=== PATIENT | female | born 1980 | race Caucasian/White ===

== ENCOUNTER 2024-07-12 15:54 | Inpatient (IN) | payer OTHER, SELFPAY ==
[2024-07-12 16:58] LABS: #Basophils 0.09 10x3/uL (0.0-0.2); %Basophils 1.7 % (0.0-1.0); %Eosinophils 3.2 % (0.0-10.0); %Lymphocytes 15.2 % (21.0-51.0); %Monocytes 14.3 % (0.0-10.0); Hematocrit 28.3 % (36.0-47.0); Hemoglobin 8.8 g/dL (12.0-16.0); Mean Corpuscular HGB CONC 31.1 g/dL (32.0-36.0); Mean Corpuscular Hemoglobin 27.3 pg (27.0-31.0); Mean Corpuscular Volume 87.9 fL (78.0-98.0); Mean Platelet Volume 9.5 fL (7.4-10.4); Platelet Count 216 10x3/uL (130-400); RBC Distribution Width 17.3 % (11.5-14.5); Red Blood Cell (RBC) Count 3.22 mill/uL (4.20-5.40)
[2024-07-12 17:10] LABS: Lipase 15 U/L (8-78)
[2024-07-12 17:12] LABS: Acetaminophen Less than 10 mcg/mL (Less than 10); Alcohol Less than 10.0 mg/dL (Less than 10); Salicylate Less than 8.0 mg/dL (Less than 8.0)
[2024-07-12] MEDS ORDERED: Morphine 2 MG/ML VIAL ONE ×2 (17:15→18:54)
[2024-07-12 17:18] LABS: ALT (SGPT) 11 U/L (8-55); AST (SGOT) 72 U/L (5-34); Albumin 1.6 g/dL (3.5-5.0); Alkaline Phosphatase 176 U/L (40-110); Anion Gap 10 mmol/L (10-20); BUN (Urea Nitrogen) 5 mg/dL (7.0-18.7); Bilirubin, Total 0.7 mg/dL (0.2-1.2); Calc. Creatinine Clearance 0 mL/min (70-130); Calcium 7.4 mg/dL (7.8-10.44); Carbon Dioxide 26 mmol/L (22-29); Chloride 102 mmol/L (98-107); Estimated GFR 113; Globulin 5.1 g/dL (2.4-3.5); Glucose 107 mg/dL (70-105); Protein, Total 6.7 g/dL (6.0-8.3); Sodium 134 mmol/L (136-145)
[2024-07-12 17:55] LABS: Bacteria/HPF 1+ HPF (None Seen); Bilirubin Negative (Negative); Blood, Urine Negative (Negative); CAUTI Indications for Culture Pelvic or flank pain; Clarity Turbid (Clear); Glucose, Urine (Dipstick) Normal (Negative); Ketone, Urine Negative (Negative); Leukocyte 250 Leu/uL (Negative); Nitrite 1+ (Negative); Protein, Urine (Dipstick) Negative (Neg-Trace); RBC/HPF 0-3 HPF (0-3); Specific Gravity, Urine 1.002 (1.002-1.036); Urobilinogen Normal mg/dL (Less than 2); pH, Urine 7.5 (5.0-9.0)
[2024-07-12 17:56] LABS: Urine Culture Reflex Yes Yes
[2024-07-12] MEDS ORDERED: cefTRIAXone (ROCEPHIN) 2 GM VIAL ONE (19:12)
[2024-07-12] MEDS ORDERED: Sodium Chloride 0.9% 100 ML ONE (19:12)
[2024-07-12 19:42] LABS: RBC Count-Automated (BF) 1332 /cu.mm; WBC/Nucleated-Auto (BF) 222 /cu.mm
[2024-07-12] MEDS ORDERED: Albumin 25% 100 ML ONE (19:46)
[2024-07-12] MEDS ORDERED: Morphine 4 MG/ML VIAL SLOW IVP PRN ×2 (19:52→21:33)
[2024-07-12] MEDS ORDERED: Ondansetron PF 4 MG/2 ML Vial IVP PRN ×2 (20:00→21:24)
[2024-07-12] MEDS ORDERED: Ondansetron ODT 4 MG TAB SL PRN (20:00)
[2024-07-12 20:23] LABS: Body Fluid Source Ascites Body Fluid
[2024-07-12 20:24] LABS: BF Color Yellow; Clarity Hazy (Clear); Tube # EDTA
[2024-07-12 20:27] LABS: BF Segmented Neutrophils 5 %; Cell Count Non Hematic 35 %; Lymphocytes 60 %
[2024-07-13 00:35] VITALS: BMI 23.4
[2024-07-13 05:02] LABS: #Basophils 0.09 10x3/uL (0.0-0.2); %Basophils 1.4 % (0.0-1.0); %Lymphocytes 14.4 % (21.0-51.0); %Monocytes 15.4 % (0.0-10.0); %Neutrophils 65.5 % (42.0-75.0); Hematocrit 24.8 % (36.0-47.0); Hemoglobin 7.8 g/dL (12.0-16.0); Mean Corpuscular HGB CONC 31.5 g/dL (32.0-36.0); Mean Corpuscular Hemoglobin 27.2 pg (27.0-31.0); Mean Corpuscular Volume 86.4 fL (78.0-98.0); Mean Platelet Volume 8.8 fL (7.4-10.4); Platelet Count 189 10x3/uL (130-400); RBC Distribution Width 17.5 % (11.5-14.5); Red Blood Cell (RBC) Count 2.87 mill/uL (4.20-5.40)
[2024-07-13] MEDS: traMADol HCl 50 MG TAB PO PRN (05:13)
[2024-07-13 05:14] LABS: ALT (SGPT) 8 U/L (8-55); AST (SGOT) 24 U/L (5-34); Albumin 1.5 g/dL (3.5-5.0); Alkaline Phosphatase 156 U/L (40-110); Anion Gap 8 mmol/L (10-20); BUN (Urea Nitrogen) 5 mg/dL (7.0-18.7); Bilirubin, Total 0.6 mg/dL (0.2-1.2); Calc. Creatinine Clearance 114 mL/min (70-130); Carbon Dioxide 25 mmol/L (22-29); Chloride 104 mmol/L (98-107); Estimated GFR 115; Globulin 3.9 g/dL (2.4-3.5); Glucose 104 mg/dL (70-105); Potassium 2.7 mmol/L (3.5-5.1); Protein, Total 5.4 g/dL (6.0-8.3); Sodium 134 mmol/L (136-145)
[2024-07-13] MEDS: Morphine 2 MG/ML VIAL SLOW IVP SCH (06:31)
[2024-07-13] MEDS: Potassium Chloride 20 MEQ TAB PO SCH (06:36)
[2024-07-13 07:02] LABS: Magnesium 1.6 mg/dL (1.6-2.6)
[2024-07-13] MEDS ORDERED: HYDROMORPHONE 1 MG/ML SL PRN (08:24)
[2024-07-13] MEDS ORDERED: HYDROmorphone 0.5 MG/0.5 ML SYRINGE SLOW IVP PRN (08:51)
[2024-07-13] MEDS ORDERED: Non-Formulary Item 1 EACH (Lactulose 10 Gm/15ml Oral Sol 10 GM/15 ML Ml) PO SCH (09:00)
[2024-07-13] MEDS ORDERED: Furosemide 40 MG TAB PO SCH (09:00)
[2024-07-13] MEDS: Magnesium Sulfate In Water 4 GM in Premix 1 BAG IVPB SCH (10:55)
[2024-07-13] MEDS: Thiamine 100 MG TAB PO SCH (10:57)
[2024-07-13] MEDS: Folic Acid 1 MG TAB PO SCH (10:58)
[2024-07-13] MEDS: Lactulose 20 GM (30 mL) UDCUP PO SCH (10:59)
[2024-07-13] MEDS: Potassium Citrate 10 MEQ TAB PO SCH (11:00)
[2024-07-13] MEDS: Potassium Phosphate 30 MMOL in Sodium Chloride 0.9% 250 ML 250 ML IVPB SCH (12:36)
[2024-07-13] MEDS: HYDROcodone/Acetaminophen 5/325 mg Tablet PO PRN (17:21)
[2024-07-13] MEDS: Furosemide 20 MG TAB PO SCH (17:24)
[2024-07-13] MEDS: Spironolactone 25 MG TAB PO SCH (17:24)
[2024-07-13] MEDS: cefTRIAXone\\ROCEPHIN 1 GM in Sodium Chloride 0.9% 100 ML IVPB SCH (20:06)
[2024-07-13] MEDS: Multivit, Therapeutic 1 TAB PO SCH (20:06)
[2024-07-13] MEDS: ALPRAZolam 0.25 MG TAB PO PRN (20:07)
[2024-07-13] MEDS: Cyclobenzaprine 10 MG TAB PO PRN (20:07)
[2024-07-13] MEDS ORDERED: Folic Acid 1 MG TAB PO SCH (21:00)
[2024-07-14 05:02] LABS: %Basophils 1.7 % (0.0-1.0); %Eosinophils 4.3 % (0.0-10.0); %Monocytes 17.3 % (0.0-10.0); %Neutrophils 59.4 % (42.0-75.0); Hematocrit 26.2 % (36.0-47.0); Mean Corpuscular HGB CONC 30.5 g/dL (32.0-36.0); Mean Corpuscular Hemoglobin 27.1 pg (27.0-31.0); Mean Corpuscular Volume 88.8 fL (78.0-98.0); Mean Platelet Volume 8.8 fL (7.4-10.4); Platelet Count 180 10x3/uL (130-400); RBC Distribution Width 17.3 % (11.5-14.5); Red Blood Cell (RBC) Count 2.95 mill/uL (4.20-5.40)
[2024-07-14 05:25] LABS: ALT (SGPT) 9 U/L (8-55); AST (SGOT) 23 U/L (5-34); Albumin 1.5 g/dL (3.5-5.0); Alkaline Phosphatase 151 U/L (40-110); Anion Gap 8 mmol/L (10-20); BUN (Urea Nitrogen) 6 mg/dL (7.0-18.7); Bilirubin, Total 0.7 mg/dL (0.2-1.2); Calc. Creatinine Clearance 112 mL/min (70-130); Calcium 7.3 mg/dL (7.8-10.44); Carbon Dioxide 25 mmol/L (22-29); Chloride 103 mmol/L (98-107); Estimated GFR 115; Glucose 102 mg/dL (70-105); Magnesium 1.9 mg/dL (1.6-2.6); Phosphorus 4.5 mg/dL (2.3-4.7); Potassium 3.9 mmol/L (3.5-5.1); Protein, Total 5.5 g/dL (6.0-8.3); Sodium 132 mmol/L (136-145)
[2024-07-14] MEDS: Spironolactone 25 MG TAB PO SCH (09:12)
[2024-07-14] MEDS: Furosemide 20 MG TAB PO SCH (09:12)
[2024-07-14] MEDS: Cipro 250 MG TAB PO SCH ×2 (09:12)
[2024-07-14] MEDS: Vancomycin (BATCH) 1.25 GM in Premix 1 BAG IVPB SCH (13:03)
[2024-07-14] MEDS ORDERED: Vancomycin 1 GM in Premix 1 BAG IVPB SCH (21:00)
[2024-07-15 06:54] LABS: Vancomycin, Random 34.9 ug/mL (See Comment)
[2024-07-15] MEDS: Potassium Citrate 10 MEQ TAB PO SCH (08:11)
[2024-07-15] MEDS: fentaNYL 12 mcg Patch TD SCH (12:37)
[2024-07-15] MEDS: Lidocaine 4% Patch TD SCH (12:37)
[2024-07-15] MEDS: Phenazopyridine HCl 100 MG TAB PO SCH (12:38)
[2024-07-16] MEDS: Transdermal Patch Removal TOP SCH (00:29)
[2024-07-16] MEDS: Ibuprofen 600 MG TAB PO PRN (05:07)
[2024-07-16 05:57] LABS: #Basophils 0.08 10x3/uL (0.0-0.2); %Basophils 1.2 % (0.0-1.0); %Eosinophils 3.5 % (0.0-10.0); %Lymphocytes 13.6 % (21.0-51.0); %Neutrophils 66.3 % (42.0-75.0); Hemoglobin 7.9 g/dL (12.0-16.0); Mean Corpuscular HGB CONC 30.4 g/dL (32.0-36.0); Mean Corpuscular Hemoglobin 26.9 pg (27.0-31.0); Mean Corpuscular Volume 88.4 fL (78.0-98.0); Platelet Count 202 10x3/uL (130-400); RBC Distribution Width 17.2 % (11.5-14.5); Red Blood Cell (RBC) Count 2.94 mill/uL (4.20-5.40)
[2024-07-16 06:19] LABS: ALT (SGPT) 8 U/L (8-55); AST (SGOT) 33 U/L (5-34); Albumin 1.8 g/dL (3.5-5.0); Alkaline Phosphatase 191 U/L (40-110); Anion Gap 8 mmol/L (10-20); BUN (Urea Nitrogen) 7 mg/dL (7.0-18.7); Bilirubin, Total 0.8 mg/dL (0.2-1.2); Calc. Creatinine Clearance 114 mL/min (70-130); Carbon Dioxide 25 mmol/L (22-29); Chloride 100 mmol/L (98-107); Estimated GFR 115; Globulin 4.4 g/dL (2.4-3.5); Glucose 92 mg/dL (70-105); Magnesium 1.6 mg/dL (1.6-2.6); Potassium 3.5 mmol/L (3.5-5.1); Protein, Total 6.2 g/dL (6.0-8.3); Sodium 129 mmol/L (136-145)
[2024-07-16] MEDS: Magnesium 2 GM/50 ML(in water) 4 GM in Premix 1 BAG IVPB SCH (11:51)
[2024-07-16] MEDS ORDERED: Iopamidol-370 76% 500 ML MDV (1 ML CHARGE) ONE (13:01)
[2024-07-16] MEDS: diphenhydrAMINE 25 MG CAP PO PRN (13:03)
[2024-07-17 06:25] LABS: #Basophils 0.09 10x3/uL (0.0-0.2); %Basophils 1.3 % (0.0-1.0); %Eosinophils 4.2 % (0.0-10.0); %Lymphocytes 11.7 % (21.0-51.0); %Monocytes 15.7 % (0.0-10.0); %Neutrophils 65.5 % (42.0-75.0); Hematocrit 23.6 % (36.0-47.0); Hemoglobin 7.2 g/dL (12.0-16.0); Mean Corpuscular HGB CONC 30.5 g/dL (32.0-36.0); Mean Corpuscular Volume 88.4 fL (78.0-98.0); Mean Platelet Volume 10.1 fL (7.4-10.4); Platelet Count 187 10x3/uL (130-400); RBC Distribution Width 17.2 % (11.5-14.5); Red Blood Cell (RBC) Count 2.67 mill/uL (4.20-5.40)
[2024-07-17 06:32] LABS: ALT (SGPT) 9 U/L (8-55); AST (SGOT) 38 U/L (5-34); Albumin 1.8 g/dL (3.5-5.0); Alkaline Phosphatase 195 U/L (40-110); Anion Gap 10 mmol/L (10-20); BUN (Urea Nitrogen) 9 mg/dL (7.0-18.7); Bilirubin, Total 0.8 mg/dL (0.2-1.2); Calc. Creatinine Clearance 118 mL/min (70-130); Carbon Dioxide 24 mmol/L (22-29); Chloride 98 mmol/L (98-107); Estimated GFR 116; Globulin 4.3 g/dL (2.4-3.5); Glucose 81 mg/dL (70-105); Magnesium 1.8 mg/dL (1.6-2.6); Potassium 3.6 mmol/L (3.5-5.1); Protein, Total 6.1 g/dL (6.0-8.3); Sodium 128 mmol/L (136-145)
[2024-07-17] MEDS: Furosemide 20 MG TAB PO SCH (08:20)
[2024-07-17] MEDS: Spironolactone 25 MG TAB PO SCH (08:20)
[2024-07-17] MEDS: Potassium Bicarbonate/Cit Ac 20 MEQ TAB PO SCH (08:32)
[2024-07-17] MEDS: Lidocaine 4% Patch TD SCH (10:03)
[2024-07-17] MEDS: fentaNYL 25 mcg Patch TD SCH (12:15)
[2024-07-17] MEDS: ALPRAZolam 0.5 MG TAB PO SCH (15:16)
[2024-07-17] MEDS: Ciprofloxacin 500 MG TAB PO SCH (20:18)
[2024-07-17] MEDS: Potassium Citrate 10 MEQ TAB PO SCH (20:24)
[2024-07-18 06:17] LABS: #Basophils 0.08 10x3/uL (0.0-0.2); %Basophils 1.4 % (0.0-1.0); %Eosinophils 3.3 % (0.0-10.0); %Lymphocytes 13.7 % (21.0-51.0); %Monocytes 17.2 % (0.0-10.0); Hematocrit 24.3 % (36.0-47.0); Hemoglobin 7.5 g/dL (12.0-16.0); Mean Corpuscular HGB CONC 30.9 g/dL (32.0-36.0); Mean Corpuscular Hemoglobin 27.1 pg (27.0-31.0); Mean Corpuscular Volume 87.7 fL (78.0-98.0); Mean Platelet Volume 9.7 fL (7.4-10.4); Platelet Count 194 10x3/uL (130-400); RBC Distribution Width 17.5 % (11.5-14.5); Red Blood Cell (RBC) Count 2.77 mill/uL (4.20-5.40)
[2024-07-18 06:41] LABS: ALT (SGPT) 10 U/L (8-55); AST (SGOT) 43 U/L (5-34); Alkaline Phosphatase 213 U/L (40-110); Anion Gap 11 mmol/L (10-20); BUN (Urea Nitrogen) 7 mg/dL (7.0-18.7); Bilirubin, Total 0.8 mg/dL (0.2-1.2); Calc. Creatinine Clearance 97 mL/min (70-130); Calcium 8.3 mg/dL (7.8-10.44); Carbon Dioxide 27 mmol/L (22-29); Chloride 99 mmol/L (98-107); Estimated GFR 111; Globulin 4.9 g/dL (2.4-3.5); Glucose 111 mg/dL (70-105); Magnesium 1.7 mg/dL (1.6-2.6); Protein, Total 6.9 g/dL (6.0-8.3); Sodium 133 mmol/L (136-145)
[2024-07-18] MEDS: ALPRAZolam 0.25 MG TAB PO SCH (09:14)
[2024-07-18 09:55] LABS: INR-International Normal Ratio 1.4; Prothrombin Time 16.7 sec (12.0-14.7)
[2024-07-18] MEDS: Albumin 25% 25 GM (100 mL) BOT IVPB SCH (12:41)
[2024-07-19 05:50] LABS: Hematocrit 23.9 % (36.0-47.0); Hemoglobin 7.3 g/dL (12.0-16.0); Platelet Count 172 10x3/uL (130-400)
[2024-07-19 06:30] LABS: ALT (SGPT) 10 U/L (8-55); AST (SGOT) 43 U/L (5-34); Albumin 2.7 g/dL (3.5-5.0); Alkaline Phosphatase 155 U/L (40-110); Anion Gap 12 mmol/L (10-20); BUN (Urea Nitrogen) 7 mg/dL (7.0-18.7); Bilirubin, Total 1.2 mg/dL (0.2-1.2); Calc. Creatinine Clearance 97 mL/min (70-130); Calcium 8.7 mg/dL (7.8-10.44); Carbon Dioxide 26 mmol/L (22-29); Chloride 97 mmol/L (98-107); Estimated GFR 111; Globulin 4.5 g/dL (2.4-3.5); Glucose 81 mg/dL (70-105); Protein, Total 7.2 g/dL (6.0-8.3); Sodium 131 mmol/L (136-145)
[2024-07-19] MEDS: Doxycycline 100 MG in Sodium Chloride 0.9% 100 ML IVPB SCH (06:32)
[2024-07-19] MEDS ORDERED: Artificial Tear Ophth Sol 15 ML BOT EA EYE PRN (09:45)
[2024-07-19] MEDS ORDERED: Moisturizing Cream (Eucerin) 113 GM JAR TOP PRN (09:45)
[2024-07-19] MEDS: Lactated Ringer's 500 ML IV SCH ×2 (10:10→12:45)
[2024-07-19] MEDS: Acetaminophen 500 MG TAB PO PRN (10:10)
[2024-07-19 10:17] LABS: #Basophils 0.07 10x3/uL (0.0-0.2); %Basophils 0.9 % (0.0-1.0); %Eosinophils 0.8 % (0.0-10.0); %Lymphocytes 8.4 % (21.0-51.0); %Monocytes 19.6 % (0.0-10.0); %Neutrophils 69.5 % (42.0-75.0); Hematocrit 23.6 % (36.0-47.0); Hemoglobin 7.2 g/dL (12.0-16.0); Mean Corpuscular HGB CONC 30.5 g/dL (32.0-36.0); Mean Corpuscular Hemoglobin 27.3 pg (27.0-31.0); Mean Corpuscular Volume 89.4 fL (78.0-98.0); Mean Platelet Volume 9.2 fL (7.4-10.4); Platelet Count 150 10x3/uL (130-400); RBC Distribution Width 18.6 % (11.5-14.5); Red Blood Cell (RBC) Count 2.64 mill/uL (4.20-5.40)
[2024-07-19] MEDS: Enoxaparin 40 MG (0.4 mL) SYRINGE SC SCH (10:36)
[2024-07-19] MEDS ORDERED: Iopamidol-370 76% 500 ML MDV (1 ML CHARGE) ONE (10:48)
[2024-07-19 12:47] LABS: Influenza A by NAA Not Detected (NotDetected); Influenza B by NAA Not Detected (NotDetected); RSV by NAA Not Detected (NotDetected); SARS-CoV-2 NAA Rapid Test DETECTED (NotDetected)
[2024-07-19 13:12] LABS: Lactic Acid 1.24 mmol/L (0.5-2.2)
[2024-07-19] MEDS: Albumin 25% 25 GM (100 mL) BOT IVPB SCH (17:20)
[2024-07-19] MEDS: Sodium Chloride 0.9% 1,000 ML IV SCH (18:01)
[2024-07-19] MEDS: Vancomycin (BATCH) 1.5 GM in Premix 1 BAG IVPB SCH (18:20)
[2024-07-19] MEDS: Vancomycin HCl 500 MG in Sodium Chloride 0.9% 100 ML IVPB SCH (18:36)
[2024-07-19 19:27] LABS: Hep C IgG Ab NONREACTIVE S/CO (NonReactive); Hep C Index 0.33 S/CO (0-0.79)
[2024-07-19] MEDS: Famotidine 20 MG TAB PO SCH (19:55)
[2024-07-20] MEDS: Ketorolac Tromethamine 30 MG (1 mL) VIAL IVP SCH (00:42)
[2024-07-20] MEDS: Vancomycin 1 GM in Premix 1 BAG IVPB SCH (04:25)
[2024-07-20 06:02] LABS: Anion Gap 9 mmol/L (10-20); BUN (Urea Nitrogen) 7 mg/dL (7.0-18.7); Calc. Creatinine Clearance 95 mL/min (70-130); Calcium 8.7 mg/dL (7.8-10.44); Carbon Dioxide 25 mmol/L (22-29); Chloride 102 mmol/L (98-107); Estimated GFR 110; Glucose 118 mg/dL (70-105); Iron 25 ug/dL (50-170); Iron Binding Capacity, Total 154 mcg/dL (265-497); Magnesium 1.7 mg/dL (1.6-2.6); Potassium 3.4 mmol/L (3.5-5.1); Sodium 133 mmol/L (136-145)
[2024-07-20 06:22] LABS: Phosphorus 3.9 mg/dL (2.3-4.7); Vancomycin, Random 42.8 ug/mL (See Comment)
[2024-07-20 06:58] LABS: INR-International Normal Ratio 1.7; Prothrombin Time 19.6 sec (12.0-14.7)
[2024-07-20 07:12] LABS: Immunoglob - G (Total IgG) 1869 mg/dL (552-1631); Immunoglob - M (Total IgM) 110 mg/dL (33-293)
[2024-07-20 07:28] LABS: Ferritin 101.45 ng/mL (10-291)
[2024-07-20 08:08] LABS: Hematocrit 21.8 % (36.0-47.0); Hemoglobin 6.5 g/dL (12.0-16.0); Mean Corpuscular HGB CONC 29.8 g/dL (32.0-36.0); Mean Corpuscular Hemoglobin 26.9 pg (27.0-31.0); Mean Corpuscular Volume 90.1 fL (78.0-98.0); Mean Platelet Volume 10.2 fL (7.4-10.4); Platelet Count 140 10x3/uL (130-400); RBC Distribution Width 18.5 % (11.5-14.5); Red Blood Cell (RBC) Count 2.42 mill/uL (4.20-5.40)
[2024-07-20 08:10] LABS: HBSAB Concentration Less than 8.00 mIU/mL; HBsAg Index 0.41 S/CO (0-0.99); Hep B Surf AB NONREACTIVE (NonReactive); Hep B Surf Ag NONREACTIVE S/CO (NonReactive)
[2024-07-20] MEDS: Pantoprazole 40 MG VIAL IVP SCH (08:58)
[2024-07-20] MEDS: Ascorbic Acid 500 mg Chewable Tablet PO SCH (08:59)
[2024-07-20] MEDS ORDERED: Enoxaparin 40 MG (0.4 mL) SYRINGE SC SCH (09:00)
[2024-07-20] MEDS: Zinc Sulfate 220 MG CAP PO SCH (09:01)
[2024-07-20] MEDS: Cholecalciferol (Vitamin D3) 400 UNITS TAB PO SCH (09:01)
[2024-07-20] MEDS: Potassium Chloride 20 MEQ TAB PO SCH (09:02)
[2024-07-20] MEDS: Ferrous Sulfate 325 MG TAB PO SCH (09:21)
[2024-07-20] MEDS: Magnesium Sulfate In Water 4 GM in Premix 1 BAG IVPB SCH (09:22)
[2024-07-20] MEDS: Magnesium 2 GM/50 ML(in water) 2 GM in Premix 1 BAG IVPB SCH (09:25)
[2024-07-20 09:43] LABS: Anisocytosis MODERATE=16-30 cells HPF (0-5); Band 16 % (5-11); Eosinophils 3 % (0-10); Large Platelets 3.9 % (0-5); Lymphocytes 10 % (21-51); Macrocytosis SLIGHT = 6-15 cells HPF (0-5); Monocytes 12 % (0-10); Neutrophil 57 % (42-75); Platelet Adequacy Comment Platelets Normal; Polychromasia SLIGHT = 2-3 cells HPF (0-2); Smudge Cells 6.9 %
[2024-07-20 14:28] LABS: Hematocrit 20.8 % (36.0-47.0); Hemoglobin 6.4 g/dL (12.0-16.0); Platelet Count 153 10x3/uL (130-400)
[2024-07-20] MEDS ORDERED: Ipratropium Bromide 2.5 ml Neb NEB PRN (17:09)
[2024-07-20] MEDS: Vancomycin HCl 750 MG in Sodium Chloride 0.9% 250 ML 250 ML IVPB SCH (17:56)
[2024-07-20] MEDS: ALPRAZolam 0.25 MG TAB PO PRN (18:04)
[2024-07-20] MEDS: Albuterol 200 PUFF (6.7GM INHALER) INH PRN (21:41)
[2024-07-20] MEDS: Albumin 25% 25 GM (100 mL) BOT IVPB SCH (23:53)
[2024-07-21 04:32] LABS: #Basophils 0.05 10x3/uL (0.0-0.2); %Basophils 0.9 % (0.0-1.0); %Eosinophils 2.2 % (0.0-10.0); %Lymphocytes 13.5 % (21.0-51.0); %Monocytes 18.2 % (0.0-10.0); %Neutrophils 64.3 % (42.0-75.0); Hemoglobin 7.2 g/dL (12.0-16.0); Mean Corpuscular HGB CONC 31.3 g/dL (32.0-36.0); Mean Corpuscular Hemoglobin 27.3 pg (27.0-31.0); Mean Corpuscular Volume 87.1 fL (78.0-98.0); Mean Platelet Volume 8.6 fL (7.4-10.4); Platelet Count 144 10x3/uL (130-400); RBC Distribution Width 18.6 % (11.5-14.5); Red Blood Cell (RBC) Count 2.64 mill/uL (4.20-5.40)
[2024-07-21 04:41] LABS: ALT (SGPT) 8 U/L (8-55); AST (SGOT) 34 U/L (5-34); Albumin 3.5 g/dL (3.5-5.0); Alkaline Phosphatase 115 U/L (40-110); Anion Gap 13 mmol/L (10-20); BUN (Urea Nitrogen) 5 mg/dL (7.0-18.7); Bilirubin, Total 0.9 mg/dL (0.2-1.2); Calc. Creatinine Clearance 94 mL/min (70-130); Calcium 8.7 mg/dL (7.8-10.44); Carbon Dioxide 22 mmol/L (22-29); Chloride 101 mmol/L (98-107); Estimated GFR 110; Globulin 3.1 g/dL (2.4-3.5); Glucose 122 mg/dL (70-105); Magnesium 1.8 mg/dL (1.6-2.6); Potassium 3.8 mmol/L (3.5-5.1); Protein, Total 6.6 g/dL (6.0-8.3); Sodium 132 mmol/L (136-145)
[2024-07-21 04:43] LABS: INR-International Normal Ratio 1.6; Prothrombin Time 19.1 sec (12.0-14.7)
[2024-07-21 11:19] LABS: ANA Symphony (Qualitative) Equivocal: See Note (Negative); ANA Symphony (Quantitative) 0.7 Ratio (< 0.7 Negative); EliA Vaculitis New Method **** NEW METHOD ****; Mitochondrial Ab 2.2 U/mL (<4 Negative); dsDNA IgG Antibody 4.8 IU/mL (<10 Negative)
[2024-07-21] MEDS: Ferrous Sulfate 325 MG TAB PO SCH (20:44)
[2024-07-22] MEDS: Furosemide 40 MG TAB PO SCH (06:34)
[2024-07-22] MEDS: Vancomycin (BATCH) 1.25 GM in Premix 1 BAG IVPB SCH (06:34)
[2024-07-22 07:12] LABS: #Basophils 0.04 10x3/uL (0.0-0.2); %Basophils 0.9 % (0.0-1.0); %Lymphocytes 17.7 % (21.0-51.0); %Monocytes 17.9 % (0.0-10.0); %Neutrophils 56.8 % (42.0-75.0); Hematocrit 24.9 % (36.0-47.0); Hemoglobin 7.7 g/dL (12.0-16.0); Mean Corpuscular HGB CONC 30.9 g/dL (32.0-36.0); Mean Corpuscular Hemoglobin 26.8 pg (27.0-31.0); Mean Corpuscular Volume 86.8 fL (78.0-98.0); Mean Platelet Volume 9.1 fL (7.4-10.4); Platelet Count 151 10x3/uL (130-400); Red Blood Cell (RBC) Count 2.87 mill/uL (4.20-5.40)
[2024-07-22 07:36] LABS: Anion Gap 12 mmol/L (10-20); BUN (Urea Nitrogen) 5 mg/dL (7.0-18.7); Calc. Creatinine Clearance 110 mL/min (70-130); Calcium 9.3 mg/dL (7.8-10.44); Carbon Dioxide 24 mmol/L (22-29); Chloride 100 mmol/L (98-107); Estimated GFR 114; Glucose 92 mg/dL (70-105); Potassium 3.9 mmol/L (3.5-5.1); Sodium 132 mmol/L (136-145)
[2024-07-22 07:47] LABS: Vancomycin, Random 12.3 ug/mL (See Comment)
[2024-07-22] MEDS: Spironolactone 100 MG TAB PO SCH (09:31)
[2024-07-22] MEDS: Benzonatate 100 MG CAP PO PRN (12:00)
[2024-07-22] MEDS: Albumin 25% 25 GM (100 mL) BOT IVPB PRN (17:49)
[2024-07-22 18:53] LABS: RBC Count-Automated (BF) 7555 /cu.mm; WBC/Nucleated-Auto (BF) 1176 /cu.mm
[2024-07-22 19:29] LABS: Body Fluid Source Ascites Body Fluid
[2024-07-22 19:30] LABS: BF Color Pink; Clarity Hazy (Clear); Tube # EDTA
[2024-07-22 19:33] LABS: BF Segmented Neutrophils 2 %; Cell Count Non Hematic 53 %; Lymphocytes 45 %
[2024-07-23] MEDS: Pantoprazole DR 40 MG TAB PO SCH (08:54)
[2024-07-23 09:05] LABS: #Basophils 0.06 10x3/uL (0.0-0.2); %Basophils 1.4 % (0.0-1.0); %Lymphocytes 18.5 % (21.0-51.0); %Monocytes 12.6 % (0.0-10.0); Hematocrit 27.3 % (36.0-47.0); Hemoglobin 8.4 g/dL (12.0-16.0); Mean Corpuscular HGB CONC 30.8 g/dL (32.0-36.0); Mean Corpuscular Hemoglobin 26.8 pg (27.0-31.0); Mean Corpuscular Volume 87.2 fL (78.0-98.0); Mean Platelet Volume 9.4 fL (7.4-10.4); Platelet Count 157 10x3/uL (130-400); RBC Distribution Width 18.8 % (11.5-14.5); Red Blood Cell (RBC) Count 3.13 mill/uL (4.20-5.40)
[2024-07-23 09:21] LABS: INR-International Normal Ratio 1.3; Prothrombin Time 16.6 sec (12.0-14.7)
[2024-07-23 09:24] LABS: ALT (SGPT) 7 U/L (8-55); AST (SGOT) 31 U/L (5-34); Albumin 3.4 g/dL (3.5-5.0); Alkaline Phosphatase 122 U/L (40-110); Anion Gap 13 mmol/L (10-20); BUN (Urea Nitrogen) 7 mg/dL (7.0-18.7); Calc. Creatinine Clearance 107 mL/min (70-130); Calcium 9.7 mg/dL (7.8-10.44); Carbon Dioxide 26 mmol/L (22-29); Chloride 99 mmol/L (98-107); Estimated GFR 113; Globulin 3.4 g/dL (2.4-3.5); Glucose 94 mg/dL (70-105); Potassium 3.4 mmol/L (3.5-5.1); Protein, Total 6.8 g/dL (6.0-8.3); Sodium 135 mmol/L (136-145)
[2024-07-23] MEDS: Vancomycin (BATCH) 1.25 GM in Premix 1 BAG IVPB SCH (12:54)
[2024-07-23] MEDS: hydrOXYzine 25 MG TAB PO PRN (20:24)
[2024-07-24 09:24] LABS: #Basophils 0.06 10x3/uL (0.0-0.2); %Basophils 1.1 % (0.0-1.0); %Eosinophils 5.5 % (0.0-10.0); %Lymphocytes 22.1 % (21.0-51.0); %Monocytes 14.7 % (0.0-10.0); %Neutrophils 55.6 % (42.0-75.0); Hematocrit 26.5 % (36.0-47.0); Hemoglobin 8.5 g/dL (12.0-16.0); Mean Corpuscular HGB CONC 32.1 g/dL (32.0-36.0); Mean Corpuscular Hemoglobin 26.9 pg (27.0-31.0); Mean Corpuscular Volume 83.9 fL (78.0-98.0); Mean Platelet Volume 9.4 fL (7.4-10.4); Platelet Count 151 10x3/uL (130-400); RBC Distribution Width 18.7 % (11.5-14.5); Red Blood Cell (RBC) Count 3.16 mill/uL (4.20-5.40)
[2024-07-24 09:38] LABS: INR-International Normal Ratio 1.4
[2024-07-24 09:45] LABS: ALT (SGPT) 9 U/L (8-55); AST (SGOT) 33 U/L (5-34); Albumin 3.4 g/dL (3.5-5.0); Alkaline Phosphatase 117 U/L (40-110); Anion Gap 11 mmol/L (10-20); BUN (Urea Nitrogen) 8 mg/dL (7.0-18.7); Calc. Creatinine Clearance 103 mL/min (70-130); Calcium 9.5 mg/dL (7.8-10.44); Carbon Dioxide 28 mmol/L (22-29); Chloride 95 mmol/L (98-107); Estimated GFR 114; Globulin 3.6 g/dL (2.4-3.5); Glucose 89 mg/dL (70-105); Sodium 131 mmol/L (136-145)
[2024-07-24] MEDS ORDERED: Bupivacaine 0.25% HCL 30 ML VIAL ONE (09:58)
[2024-07-24] MEDS ORDERED: EPINEPHrine 1 MG/ML VIAL ONE (09:58)
[2024-07-24] MEDS ORDERED: Midazolam HCl 2 mg/2 ml Vial ONE (13:29)
[2024-07-24] MEDS ORDERED: PROPOFOL 20 ML ONE (13:39)
[2024-07-24] MEDS ORDERED: fentaNYL 50 mcg/mL 1 mL Vial ONE (13:39)
[2024-07-24] MEDS ORDERED: Lidocaine 1% PF 5 ML VIAL ONE (13:39)
[2024-07-24] MEDS ORDERED: Dexamethasone 4 mg/ml Vial ONE (13:55)
[2024-07-24] MEDS ORDERED: Ondansetron PF 4 MG/2 ML Vial ONE (13:55)
[2024-07-24] MEDS ORDERED: Promethazine HCl 25 MG/ML VIAL IM PRN (13:57)
[2024-07-24] MEDS ORDERED: Ondansetron HCl/PF 4 MG/2 ML Vial IVP PRN (13:57)
[2024-07-24] MEDS: fentaNYL 25 mcg Patch TD SCH (18:33)
[2024-07-25 05:55] LABS: #Basophils 0.06 10x3/uL (0.0-0.2); %Eosinophils 6.3 % (0.0-10.0); %Lymphocytes 17.5 % (21.0-51.0); %Monocytes 13.9 % (0.0-10.0); %Neutrophils 60.6 % (42.0-75.0); Hematocrit 25.4 % (36.0-47.0); Mean Corpuscular HGB CONC 31.5 g/dL (32.0-36.0); Mean Corpuscular Hemoglobin 27.1 pg (27.0-31.0); Mean Corpuscular Volume 86.1 fL (78.0-98.0); Mean Platelet Volume 9.1 fL (7.4-10.4); Platelet Count 147 10x3/uL (130-400); RBC Distribution Width 18.7 % (11.5-14.5); Red Blood Cell (RBC) Count 2.95 mill/uL (4.20-5.40)
[2024-07-25 06:10] LABS: Anion Gap 12 mmol/L (10-20); BUN (Urea Nitrogen) 7 mg/dL (7.0-18.7); Calc. Creatinine Clearance 86 mL/min (70-130); Calcium 9.2 mg/dL (7.8-10.44); Carbon Dioxide 27 mmol/L (22-29); Chloride 96 mmol/L (98-107); Estimated GFR 110; Glucose 85 mg/dL (70-105); Potassium 3.4 mmol/L (3.5-5.1); Sodium 132 mmol/L (136-145)
[2024-07-25 06:13] LABS: Vancomycin, Random 13.9 ug/mL (See Comment)
[2024-07-26 05:53] LABS: #Basophils 0.06 10x3/uL (0.0-0.2); %Basophils 1.1 % (0.0-1.0); %Eosinophils 5.4 % (0.0-10.0); %Monocytes 13.7 % (0.0-10.0); %Neutrophils 62.2 % (42.0-75.0); Hematocrit 27.5 % (36.0-47.0); Hemoglobin 8.7 g/dL (12.0-16.0); Mean Corpuscular HGB CONC 31.6 g/dL (32.0-36.0); Mean Corpuscular Hemoglobin 27.2 pg (27.0-31.0); Mean Corpuscular Volume 85.9 fL (78.0-98.0); Platelet Count 172 10x3/uL (130-400); RBC Distribution Width 18.8 % (11.5-14.5)
[2024-07-26 06:06] LABS: Anion Gap 13 mmol/L (10-20); BUN (Urea Nitrogen) 8 mg/dL (7.0-18.7); Calc. Creatinine Clearance 95 mL/min (70-130); Calcium 10.1 mg/dL (7.8-10.44); Carbon Dioxide 28 mmol/L (22-29); Chloride 96 mmol/L (98-107); Estimated GFR 113; Glucose 112 mg/dL (70-105); Potassium 2.9 mmol/L (3.5-5.1); Sodium 134 mmol/L (136-145)
[2024-07-26] MEDS: Potassium Chloride 20 MEQ TAB PO SCH (09:22)
[2024-07-27 06:37] LABS: #Basophils 0.04 10x3/uL (0.0-0.2); %Basophils 0.7 % (0.0-1.0); %Lymphocytes 16.1 % (21.0-51.0); %Monocytes 11.3 % (0.0-10.0); %Neutrophils 65.4 % (42.0-75.0); Hematocrit 28.7 % (36.0-47.0); Mean Corpuscular HGB CONC 31.4 g/dL (32.0-36.0); Mean Corpuscular Hemoglobin 26.9 pg (27.0-31.0); Mean Corpuscular Volume 85.7 fL (78.0-98.0); Mean Platelet Volume 9.8 fL (7.4-10.4); Platelet Count 191 10x3/uL (130-400); RBC Distribution Width 19.4 % (11.5-14.5); Red Blood Cell (RBC) Count 3.35 mill/uL (4.20-5.40)
[2024-07-27 06:53] LABS: Anion Gap 13 mmol/L (10-20); BUN (Urea Nitrogen) 9 mg/dL (7.0-18.7); Calc. Creatinine Clearance 94 mL/min (70-130); Calcium 10.8 mg/dL (7.8-10.44); Carbon Dioxide 26 mmol/L (22-29); Chloride 101 mmol/L (98-107); Estimated GFR 111; Glucose 131 mg/dL (70-105); Potassium 3.8 mmol/L (3.5-5.1); Sodium 136 mmol/L (136-145)
[2024-07-27 11:34] VITALS: TEMP 98.2
[2024-07-27 12:06] VITALS: BMI 22.4
[2024-07-27 13:16] VITALS: BP 115/78
== END 2024-07-27 13:09 | disposition home or self-care (01) | DRG 981 ==
LOC: ERS 15:54 → T4-B 19:47 → OBSVTOIN 07-13 15:15 → CCU 07-19 11:29 → IMCU/EMU 07-21 06:48 → T4-B 07-23 15:15
PROVIDERS: ADMIT Internal Medicine; ATTEND Internal Medicine
PROC: 30233J1 Transfusion of Nonautologous Serum Albumin into Peripheral Vein, Percutaneous Approach (ICD-10-PCS; 2024-07-12)
PROC: 30233N1 Transfusion of Nonautologous Red Blood Cells into Peripheral Vein, Percutaneous Approach (ICD-10-PCS; principal; 2024-07-20)
PROC: 0WPG03Z Removal of Infusion Device from Peritoneal Cavity, Open Approach (ICD-10-PCS; 2024-07-24)
DX: K70.31 Alcoholic cirrhosis of liver with ascites (principal); A41.9 Sepsis, unspecified organism; E43 Unspecified severe protein-calorie malnutrition; U07.1 COVID-19; K65.8 Other peritonitis; N39.0 Urinary tract infection, site not specified; Z16.29 Resistance to other single specified antibiotic; E87.1 Hypo-osmolality and hyponatremia; K76.6 Portal hypertension; T85.71XA Infection and inflammatory reaction due to peritoneal dialysis catheter, initial encounter; Z51.5 Encounter for palliative care; Z66 Do not resuscitate; W19.XXXA Unspecified fall, initial encounter; E88.09 Other disorders of plasma-protein metabolism, not elsewhere classified; E87.6 Hypokalemia; E83.42 Hypomagnesemia; G89.4 Chronic pain syndrome; B95.8 Unspecified staphylococcus as the cause of diseases classified elsewhere; B96.1 Klebsiella pneumoniae [K. pneumoniae] as the cause of diseases classified elsewhere; F41.9 Anxiety disorder, unspecified; I07.1 Rheumatic tricuspid insufficiency; K76.82 Hepatic encephalopathy; D63.8 Anemia in other chronic diseases classified elsewhere; Z68.22 Body mass index [BMI] 22.0-22.9, adult
CPT/HCPCS: 0241U; 36415; 36430; 49082; 71046; 71275; 74177; 80048; 80053; 80202; 80307; 81001; 82105; 82140; 82150; 82390; 82525; 82728; 82945; 83516; 83540; 83550; 83605; 83615; 83690; 83735; 84100; 84134; 84145; 85014; 85018; 85025; 85049; 85060; 85379; 85610; 86015; 86038; 86225; 86706; 86803; 86850; 86900; 86901; 87040; 87070; 87077; 87086; 87186; 87205; 87340; 89051; 93005; 93010; 93306; 93970; 96365; 96375; 96376; A6258; G0378; J0171; J0665; J0696; J1100; J1650; J1885; J2250; J2272; J2405; J2470; J2704; J3010; J3370; J3370-JW; J3475; J7030; J7050; J7120; P9016; P9047; Q9967

== ENCOUNTER → 2024-08-17 | Emergency (ER) | payer OTHER ==
[2024-08-17 14:06] LABS: %Basophils 1.3 % (0.0-1.0); %Eosinophils 3.4 % (0.0-10.0); %Lymphocytes 16.4 % (21.0-51.0); %Monocytes 10.9 % (0.0-10.0); %Neutrophils 67.5 % (42.0-75.0); Hematocrit 32.9 % (36.0-47.0); Hemoglobin 11.2 g/dL (12.0-16.0); Mean Corpuscular Hemoglobin 29.3 pg (27.0-31.0); Mean Corpuscular Volume 86.1 fL (78.0-98.0); Mean Platelet Volume 10.7 fL (7.4-10.4); Platelet Count 158 10x3/uL (130-400); RBC Distribution Width 18.4 % (11.5-14.5); Red Blood Cell (RBC) Count 3.82 mill/uL (4.20-5.40)
[2024-08-17 14:19] LABS: BHCG - Serum Negative (NEGATIVE); Pregs Control Background? CLEAR/WHITE (CLR/WHITE); Pregs Control Bar Appear? YES (CONTROL BAR)
[2024-08-17 14:26] LABS: ALT (SGPT) 25 U/L (8-55); AST (SGOT) 52 U/L (5-34); Albumin 3.5 g/dL (3.5-5.0); Alkaline Phosphatase 296 U/L (40-110); Anion Gap 14 mmol/L (10-20); BUN (Urea Nitrogen) 14 mg/dL (7.0-18.7); Bilirubin, Total 0.7 mg/dL (0.2-1.2); Calc. Creatinine Clearance 0 mL/min (70-130); Carbon Dioxide 23 mmol/L (22-29); Chloride 99 mmol/L (98-107); Estimated GFR 70; Globulin 5.1 g/dL (2.4-3.5); Glucose 152 mg/dL (70-105); Magnesium 1.6 mg/dL (1.6-2.6); Potassium 3.6 mmol/L (3.5-5.1); Protein, Total 8.6 g/dL (6.0-8.3); Sodium 132 mmol/L (136-145)
== END ==
LOC: ERS 13:09
DX: E83.52 Hypercalcemia (principal); E20.9 Hypoparathyroidism, unspecified; I10 Essential (primary) hypertension; Z79.899 Other long term (current) drug therapy
CPT/HCPCS: 36415; 71045; 72170; 80053; 83735; 83970; 84703; 85025; 93005

== ENCOUNTER 2024-09-05 08:52 | Inpatient (IN) | payer OTHER ==
[2024-09-05 09:53] LABS: %Eosinophils 0.9 % (0.0-10.0); %Monocytes 11.5 % (0.0-10.0); %Neutrophils 76.2 % (42.0-75.0); Hematocrit 33.7 % (36.0-47.0); Hemoglobin 11.5 g/dL (12.0-16.0); Mean Corpuscular HGB CONC 34.1 g/dL (32.0-36.0); Mean Corpuscular Hemoglobin 29.7 pg (27.0-31.0); Mean Corpuscular Volume 87.1 fL (78.0-98.0); Mean Platelet Volume 9.6 fL (7.4-10.4); Platelet Count 226 10x3/uL (130-400); Red Blood Cell (RBC) Count 3.87 mill/uL (4.20-5.40)
[2024-09-05 10:15] LABS: ALT (SGPT) 12 U/L (8-55); AST (SGOT) 26 U/L (5-34); Albumin 3.2 g/dL (3.5-5.0); Alkaline Phosphatase 203 U/L (40-110); Anion Gap 13 mmol/L (10-20); BUN (Urea Nitrogen) 19 mg/dL (7.0-18.7); Bilirubin, Total 1.1 mg/dL (0.2-1.2); Calc. Creatinine Clearance 0 mL/min (70-130); Calcium 11.2 mg/dL (7.8-10.44); Carbon Dioxide 24 mmol/L (22-29); Chloride 97 mmol/L (98-107); Estimated GFR 92; Globulin 5.4 g/dL (2.4-3.5); Glucose 148 mg/dL (70-105); Potassium 4.5 mmol/L (3.5-5.1); Protein, Total 8.6 g/dL (6.0-8.3); Sodium 129 mmol/L (136-145)
[2024-09-05] MEDS ORDERED: fentaNYL 50 mcg/mL 1 mL Vial ONE (10:17)
[2024-09-05 10:21] LABS: INR-International Normal Ratio 1.3
[2024-09-05 10:22] LABS: PTT 36.1 sec (22.9-36.1)
[2024-09-05] MEDS ORDERED: Ondansetron PF 4 MG/2 ML Vial IVP PRN (12:12)
[2024-09-05] MEDS ORDERED: VANCOMYCIN IVPB PRN (13:46)
[2024-09-05] MEDS: Heparin 5,000 UNITS/ML VIAL SC SCH (14:12)
[2024-09-05] MEDS: Cefepime 1 GM in Sodium Chloride 0.9% 100 ML IVPB SCH (14:12)
[2024-09-05] MEDS: traMADol HCl 50 MG TAB PO PRN (14:14)
[2024-09-05] MEDS: Vancomycin (BATCH) 1.25 GM in Premix 1 BAG IVPB SCH (14:58)
[2024-09-05 17:23] LABS: Bacteria/HPF None Seen HPF (None Seen); Bilirubin Negative (Negative); Blood, Urine Negative (Negative); CAUTI Indications for Culture Pelvic or flank pain; Clarity Clear (Clear); Glucose, Urine (Dipstick) Normal (Negative); Ketone, Urine Negative (Negative); Leukocyte Negative Leu/uL (Negative); Nitrite Negative (Negative); Protein, Urine (Dipstick) Negative (Neg-Trace); RBC/HPF 0-3 HPF (0-3); Specific Gravity, Urine 1.017 (1.002-1.036); Squamous Epithelial 0-3 HPF (0-3); Urobilinogen Normal mg/dL (Less than 2); pH, Urine 6.5 (5.0-9.0)
[2024-09-05 17:33] LABS: Urine Culture Reflex No No
[2024-09-05] MEDS: Sodium Chloride 0.9% 500 ML IV SCH (20:05)
[2024-09-05] MEDS ORDERED: Vancomycin 1 GM in Sodium Chloride 0.9% 250 ML 250 ML IVPB SCH (21:00)
[2024-09-05 21:55] LABS: #Basophils 0.06 10x3/uL (0.0-0.2); %Basophils 0.9 % (0.0-1.0); %Eosinophils 1.6 % (0.0-10.0); %Lymphocytes 15.9 % (21.0-51.0); %Monocytes 15.2 % (0.0-10.0); Hematocrit 28.4 % (36.0-47.0); Hemoglobin 9.7 g/dL (12.0-16.0); Mean Corpuscular HGB CONC 34.2 g/dL (32.0-36.0); Mean Corpuscular Hemoglobin 29.7 pg (27.0-31.0); Mean Corpuscular Volume 86.9 fL (78.0-98.0); Platelet Count 173 10x3/uL (130-400); RBC Distribution Width 16.6 % (11.5-14.5); Red Blood Cell (RBC) Count 3.27 mill/uL (4.20-5.40)
[2024-09-05 22:19] LABS: Anion Gap 12 mmol/L (10-20); BUN (Urea Nitrogen) 14 mg/dL (7.0-18.7); Calc. Creatinine Clearance 64 mL/min (70-130); Calcium 9.5 mg/dL (7.8-10.44); Carbon Dioxide 21 mmol/L (22-29); Chloride 98 mmol/L (98-107); Estimated GFR 87; Glucose 253 mg/dL (70-105); Magnesium 1.6 mg/dL (1.6-2.6); Potassium 3.9 mmol/L (3.5-5.1); Sodium 127 mmol/L (136-145)
[2024-09-06] MEDS: Vancomycin 1 GM in Premix 1 BAG IVPB SCH (00:15)
[2024-09-06 00:41] LABS: Lactic Acid 1.13 mmol/L (0.5-2.2)
[2024-09-06 04:52] LABS: #Basophils 0.07 10x3/uL (0.0-0.2); %Basophils 0.9 % (0.0-1.0); %Eosinophils 2.1 % (0.0-10.0); %Lymphocytes 12.5 % (21.0-51.0); %Monocytes 15.5 % (0.0-10.0); %Neutrophils 68.4 % (42.0-75.0); Hematocrit 28.4 % (36.0-47.0); Hemoglobin 9.6 g/dL (12.0-16.0); Mean Corpuscular HGB CONC 33.8 g/dL (32.0-36.0); Mean Corpuscular Hemoglobin 29.4 pg (27.0-31.0); Mean Corpuscular Volume 87.1 fL (78.0-98.0); Mean Platelet Volume 9.2 fL (7.4-10.4); Platelet Count 202 10x3/uL (130-400); RBC Distribution Width 16.5 % (11.5-14.5); Red Blood Cell (RBC) Count 3.26 mill/uL (4.20-5.40)
[2024-09-06 05:09] LABS: Anion Gap 11 mmol/L (10-20); BUN (Urea Nitrogen) 12 mg/dL (7.0-18.7); Calc. Creatinine Clearance 91 mL/min (70-130); Calcium 9.9 mg/dL (7.8-10.44); Carbon Dioxide 22 mmol/L (22-29); Chloride 99 mmol/L (98-107); Estimated GFR 113; Glucose 79 mg/dL (70-105); Magnesium 1.6 mg/dL (1.6-2.6); Sodium 128 mmol/L (136-145)
[2024-09-06 05:17] LABS: Vancomycin, Random 43.7 ug/mL (See Comment)
[2024-09-06] MEDS ORDERED: CARBOplatin 750 MG in Sodium Chloride 0.9% 250 ML 250 ML IVPB SCH (10:00)
[2024-09-06] MEDS: Magnesium Sulfate In Water 4 GM in Premix 1 BAG IVPB SCH (10:20)
[2024-09-06] MEDS: Sodium Chloride 0.9% 1,000 ML IV SCH (12:14)
[2024-09-06] MEDS: Vancomycin HCl 750 MG in Sodium Chloride 0.9% 250 ML 250 ML IVPB SCH (12:16)
[2024-09-06] MEDS ORDERED: Vancomycin HCl 750 MG in Sodium Chloride 0.9% 250 ML 250 ML IVPB SCH (13:00)
[2024-09-06] MEDS: Cefepime 2 GM in Sodium Chloride 0.9% 100 ML IVPB SCH (14:04)
[2024-09-06] MEDS: Multivit, Therapeutic 1 TAB PO SCH (21:08)
[2024-09-06] MEDS: Metoprolol Succinate XL 50 MG ER.TAB PO SCH (21:08)
[2024-09-06] MEDS: Thiamine 100 MG TAB PO SCH (21:08)
[2024-09-06] MEDS: Folic Acid 1 MG TAB PO SCH (21:08)
[2024-09-07 07:04] LABS: #Basophils 0.07 10x3/uL (0.0-0.2); %Eosinophils 2.8 % (0.0-10.0); %Lymphocytes 13.7 % (21.0-51.0); %Monocytes 13.3 % (0.0-10.0); %Neutrophils 68.8 % (42.0-75.0); Hematocrit 28.9 % (36.0-47.0); Hemoglobin 9.9 g/dL (12.0-16.0); Mean Corpuscular HGB CONC 34.3 g/dL (32.0-36.0); Mean Corpuscular Hemoglobin 30.3 pg (27.0-31.0); Mean Corpuscular Volume 88.4 fL (78.0-98.0); Mean Platelet Volume 9.1 fL (7.4-10.4); Platelet Count 212 10x3/uL (130-400); Red Blood Cell (RBC) Count 3.27 mill/uL (4.20-5.40)
[2024-09-07 07:26] LABS: Vancomycin, Random 21.9 ug/mL (See Comment)
[2024-09-07 07:27] LABS: Anion Gap 12 mmol/L (10-20); BUN (Urea Nitrogen) 9 mg/dL (7.0-18.7); Calc. Creatinine Clearance 99 mL/min (70-130); Calcium 10.6 mg/dL (7.8-10.44); Carbon Dioxide 21 mmol/L (22-29); Chloride 102 mmol/L (98-107); Estimated GFR 116; Glucose 128 mg/dL (70-105); Magnesium 1.5 mg/dL (1.6-2.6); Potassium 3.7 mmol/L (3.5-5.1); Sodium 131 mmol/L (136-145)
[2024-09-07] MEDS: Magnesium Sulfate In Water 4 GM in Premix 1 BAG IVPB SCH (09:33)
[2024-09-07] MEDS: Lactulose 20 GM (30 mL) UDCUP PO SCH (14:07)
[2024-09-08 06:22] LABS: #Basophils 0.05 10x3/uL (0.0-0.2); %Basophils 0.9 % (0.0-1.0); %Eosinophils 2.4 % (0.0-10.0); %Lymphocytes 15.3 % (21.0-51.0); %Monocytes 14.3 % (0.0-10.0); %Neutrophils 66.8 % (42.0-75.0); Hematocrit 26.9 % (36.0-47.0); Hemoglobin 9.1 g/dL (12.0-16.0); Mean Corpuscular HGB CONC 33.8 g/dL (32.0-36.0); Mean Corpuscular Hemoglobin 29.4 pg (27.0-31.0); Mean Corpuscular Volume 87.1 fL (78.0-98.0); Mean Platelet Volume 9.4 fL (7.4-10.4); Platelet Count 220 10x3/uL (130-400); RBC Distribution Width 15.9 % (11.5-14.5); Red Blood Cell (RBC) Count 3.09 mill/uL (4.20-5.40)
[2024-09-08 06:37] LABS: Phosphorus 3.6 mg/dL (2.3-4.7)
[2024-09-08 06:44] LABS: Anion Gap 9 mmol/L (10-20); BUN (Urea Nitrogen) 7 mg/dL (7.0-18.7); Calc. Creatinine Clearance 105 mL/min (70-130); Calcium 10.3 mg/dL (7.8-10.44); Carbon Dioxide 23 mmol/L (22-29); Chloride 103 mmol/L (98-107); Estimated GFR 117; Glucose 130 mg/dL (70-105); Magnesium 1.4 mg/dL (1.6-2.6); Potassium 3.3 mmol/L (3.5-5.1); Sodium 132 mmol/L (136-145)
[2024-09-08] MEDS: Magnesium Sulfate In Water 4 GM in Premix 1 BAG IVPB SCH (10:00)
[2024-09-08] MEDS: NS 0.9% w/ 40 MEQ KCL 500 ML IV SCH (10:37)
[2024-09-08] MEDS ORDERED: Lidocaine 1% w/Epinephrine 1:100K 20 ML VIAL ONE (11:27)
[2024-09-08] MEDS ORDERED: Sodium Bicarbonate 2.5 MEQ/5 ML SDV ONE (11:27)
[2024-09-09 05:58] LABS: #Basophils 0.07 10x3/uL (0.0-0.2); %Basophils 1.1 % (0.0-1.0); %Eosinophils 2.6 % (0.0-10.0); %Lymphocytes 14.7 % (21.0-51.0); %Monocytes 13.7 % (0.0-10.0); %Neutrophils 67.6 % (42.0-75.0); Hematocrit 27.6 % (36.0-47.0); Hemoglobin 9.3 g/dL (12.0-16.0); Mean Corpuscular HGB CONC 33.7 g/dL (32.0-36.0); Mean Corpuscular Hemoglobin 29.3 pg (27.0-31.0); Mean Corpuscular Volume 87.1 fL (78.0-98.0); Mean Platelet Volume 9.2 fL (7.4-10.4); Platelet Count 213 10x3/uL (130-400); RBC Distribution Width 15.8 % (11.5-14.5); Red Blood Cell (RBC) Count 3.17 mill/uL (4.20-5.40)
[2024-09-09 06:37] LABS: Anion Gap 8 mmol/L (10-20); BUN (Urea Nitrogen) 5 mg/dL (7.0-18.7); Calc. Creatinine Clearance 111 mL/min (70-130); Calcium 10.7 mg/dL (7.8-10.44); Carbon Dioxide 23 mmol/L (22-29); Chloride 104 mmol/L (98-107); Estimated GFR 119; Glucose 93 mg/dL (70-105); Magnesium 1.3 mg/dL (1.6-2.6); Potassium 3.4 mmol/L (3.5-5.1); Sodium 132 mmol/L (136-145)
[2024-09-09] MEDS: Magnesium Oxide 400 MG TAB PO SCH (11:09)
[2024-09-09] MEDS: Magnesium Sulfate In Water 4 GM in Premix 1 BAG IVPB SCH (11:09)
[2024-09-09] MEDS: Potassium Bicarbonate/Cit Ac 20 MEQ TAB PO SCH (11:10)
[2024-09-09] MEDS: Potassium Chloride 20 MEQ TAB PO SCH ×2 (13:10→16:07)
[2024-09-09] MEDS ORDERED: Potassium Bicarbonate/Cit Ac 20 MEQ TAB PO SCH (17:00)
[2024-09-10] MEDS: Acetaminophen 325 MG TAB PO PRN (02:30)
[2024-09-10 06:18] LABS: #Basophils 0.06 10x3/uL (0.0-0.2); %Basophils 1.2 % (0.0-1.0); %Eosinophils 2.9 % (0.0-10.0); %Lymphocytes 19.5 % (21.0-51.0); %Monocytes 14.4 % (0.0-10.0); %Neutrophils 61.6 % (42.0-75.0); Hematocrit 28.4 % (36.0-47.0); Hemoglobin 9.6 g/dL (12.0-16.0); Mean Corpuscular HGB CONC 33.8 g/dL (32.0-36.0); Mean Corpuscular Hemoglobin 29.7 pg (27.0-31.0); Mean Corpuscular Volume 87.9 fL (78.0-98.0); Mean Platelet Volume 8.4 fL (7.4-10.4); Platelet Count 194 10x3/uL (130-400); RBC Distribution Width 15.7 % (11.5-14.5); Red Blood Cell (RBC) Count 3.23 mill/uL (4.20-5.40)
[2024-09-10 06:32] LABS: Vancomycin, Random 18.8 ug/mL (See Comment)
[2024-09-10 06:35] LABS: Anion Gap 9 mmol/L (10-20); BUN (Urea Nitrogen) 6 mg/dL (7.0-18.7); Calc. Creatinine Clearance 116 mL/min (70-130); Calcium 10.9 mg/dL (7.8-10.44); Carbon Dioxide 23 mmol/L (22-29); Chloride 105 mmol/L (98-107); Estimated GFR 120; Glucose 95 mg/dL (70-105); Magnesium 1.5 mg/dL (1.6-2.6); Potassium 3.9 mmol/L (3.5-5.1); Sodium 133 mmol/L (136-145)
[2024-09-10] MEDS ORDERED: Electrolyte Replacement Protocol 1 EACH FS SCH (08:30)
[2024-09-10] MEDS: Magnesium 2 GM/50 ML(in water) 2 GM in Premix 1 BAG IVPB SCH (08:42)
[2024-09-10] MEDS ORDERED: Electrolyte Replacement Protocol FS PRN (08:45)
[2024-09-11] MEDS: diphenhydrAMINE 25 MG CAP PO SCH (02:24)
[2024-09-11 05:54] LABS: Magnesium 1.4 mg/dL (1.6-2.6)
[2024-09-11] MEDS: Magnesium Sulfate In Water 4 GM in Premix 1 BAG IVPB SCH (06:25)
[2024-09-11] MEDS ORDERED: Iopamidol-370 76% 500 ML MDV (1 ML CHARGE) ONE (13:24)
[2024-09-11] MEDS: diphenhydrAMINE 25 MG CAP PO PRN (14:17)
[2024-09-12 06:23] LABS: Vancomycin, Random 26.6 ug/mL (See Comment)
[2024-09-12 06:24] LABS: Calc. Creatinine Clearance 101 mL/min (70-130); Estimated GFR 116; Magnesium 1.4 mg/dL (1.6-2.6)
[2024-09-12] MEDS: Magnesium Sulfate In Water 4 GM in Premix 1 BAG IVPB SCH (08:04)
[2024-09-12] MEDS: Diclofenac 1% 50 GM TOPICAL GEL TP SCH (15:00)
[2024-09-12] MEDS: hydrOXYzine 25 MG TAB PO PRN (16:32)
[2024-09-12 16:55] LABS: Magnesium 1.4 mg/dL (1.6-2.6)
[2024-09-12] MEDS: Magnesium 2 GM/50 ML(in water) 2 GM in Premix 1 BAG IVPB SCH (20:17)
[2024-09-13 07:06] LABS: Magnesium 1.9 mg/dL (1.6-2.6)
[2024-09-13] MEDS: Magnesium 2 GM/50 ML(in water) 2 GM in Premix 1 BAG IVPB SCH (09:08)
[2024-09-14 06:28] LABS: #Basophils 0.03 10x3/uL (0.0-0.2); %Basophils 0.7 % (0.0-1.0); %Eosinophils 4.1 % (0.0-10.0); %Monocytes 13.5 % (0.0-10.0); %Neutrophils 60.3 % (42.0-75.0); Hematocrit 26.7 % (36.0-47.0); Hemoglobin 8.9 g/dL (12.0-16.0); Mean Corpuscular HGB CONC 33.3 g/dL (32.0-36.0); Mean Corpuscular Hemoglobin 29.7 pg (27.0-31.0); Mean Platelet Volume 8.8 fL (7.4-10.4); Platelet Count 161 10x3/uL (130-400); RBC Distribution Width 16.1 % (11.5-14.5)
[2024-09-14 06:39] LABS: Anion Gap 10 mmol/L (10-20); BUN (Urea Nitrogen) 7 mg/dL (7.0-18.7); Calc. Creatinine Clearance 101 mL/min (70-130); Calcium 11.4 mg/dL (7.8-10.44); Carbon Dioxide 26 mmol/L (22-29); Chloride 107 mmol/L (98-107); Estimated GFR 116; Glucose 75 mg/dL (70-105); Magnesium 1.4 mg/dL (1.6-2.6); Potassium 3.6 mmol/L (3.5-5.1); Sodium 139 mmol/L (136-145)
[2024-09-14] MEDS: Magnesium Sulfate In Water 4 GM in Premix 1 BAG IVPB SCH (10:40)
[2024-09-15 05:33] LABS: Anion Gap 8 mmol/L (10-20); BUN (Urea Nitrogen) 7 mg/dL (7.0-18.7); Calc. Creatinine Clearance 105 mL/min (70-130); Carbon Dioxide 26 mmol/L (22-29); Chloride 106 mmol/L (98-107); Estimated GFR 117; Glucose 86 mg/dL (70-105); Magnesium 1.4 mg/dL (1.6-2.6); Potassium 3.3 mmol/L (3.5-5.1); Sodium 137 mmol/L (136-145)
[2024-09-15] MEDS: Spironolactone 100 MG TAB PO SCH (08:13)
[2024-09-15] MEDS: Magnesium Sulfate In Water 4 GM in Premix 1 BAG IVPB SCH (08:13)
[2024-09-15] MEDS: Metoprolol Succinate XL 50 MG ER.TAB PO SCH (08:13)
[2024-09-15] MEDS: Furosemide 40 MG TAB PO SCH (08:13)
[2024-09-15] MEDS: Potassium Chloride 20 MEQ TAB PO SCH (08:13)
[2024-09-15] MEDS: Magnesium Oxide 400 MG TAB PO SCH (16:13)
[2024-09-16] MEDS: Vancomycin HCl 750 MG in Sodium Chloride 0.9% 250 ML 250 ML IVPB SCH ×2 (05:06→17:21)
[2024-09-16 06:06] LABS: Anion Gap 10 mmol/L (10-20); BUN (Urea Nitrogen) 7 mg/dL (7.0-18.7); Calc. Creatinine Clearance 91 mL/min (70-130); Calcium 11.4 mg/dL (7.8-10.44); Carbon Dioxide 26 mmol/L (22-29); Chloride 106 mmol/L (98-107); Estimated GFR 113; Glucose 76 mg/dL (70-105); Magnesium 1.3 mg/dL (1.6-2.6); Potassium 3.6 mmol/L (3.5-5.1); Sodium 138 mmol/L (136-145)
[2024-09-16] MEDS: Magnesium Sulfate In Water 4 GM in Premix 1 BAG IVPB SCH ×2 (08:16→13:21)
[2024-09-16] MEDS: traMADol HCl 50 MG TAB PO PRN (11:16)
[2024-09-16 12:49] LABS: Phosphorus 3.7 mg/dL (2.3-4.7)
[2024-09-16] MEDS: Albumin 25% 25 GM (100 mL) BOT IVPB SCH (17:17)
[2024-09-16] MEDS ORDERED: Magnesium Sulfate 4 GM in Sodium Chloride 0.9% 250 ML 250 ML IVPB SCH (20:00)
[2024-09-17 05:01] LABS: Vancomycin, Random 17.9 ug/mL (See Comment)
[2024-09-17 05:12] LABS: Albumin 3.1 g/dL (3.5-5.0); Anion Gap 10 mmol/L (10-20); BUN (Urea Nitrogen) 8 mg/dL (7.0-18.7); BUN/Creatinine Ratio 11.27; Calc. Creatinine Clearance 77 mL/min (70-130); Carbon Dioxide 26 mmol/L (22-29); Chloride 104 mmol/L (98-107); Estimated GFR 107; Glucose 101 mg/dL (70-105); Phosphorus 3.2 mg/dL (2.3-4.7); Sodium 137 mmol/L (136-145)
[2024-09-17 06:04] LABS: Calcium 11.5 mg/dL (7.8-10.44); Magnesium 1.5 mg/dL (1.6-2.6)
[2024-09-17] MEDS ORDERED: Magnesium 2 GM/50 ML(in water) 2 GM in Premix 1 BAG IVPB SCH (08:00)
[2024-09-17] MEDS: Magnesium Sulfate In Water 4 GM in Premix 1 BAG IVPB SCH (08:35)
[2024-09-17] MEDS: Potassium Chloride 20 MEQ TAB PO SCH (08:35)
[2024-09-17] MEDS: NS 0.9% w/ 40 MEQ KCL 1,000 ML IV SCH (15:07)
[2024-09-17] MEDS: Albumin 25% 25 GM (100 mL) BOT IVPB SCH (23:29)
[2024-09-18] MEDS ORDERED: Magnesium 2 GM/50 ML(in water) 2 GM in Premix 1 BAG IVPB SCH (09:15)
[2024-09-18 09:36] LABS: #Basophils 0.04 10x3/uL (0.0-0.2); %Basophils 0.7 % (0.0-1.0); %Eosinophils 3.3 % (0.0-10.0); %Lymphocytes 18.4 % (21.0-51.0); %Monocytes 13.1 % (0.0-10.0); %Neutrophils 64.2 % (42.0-75.0); Hematocrit 27.6 % (36.0-47.0); Hemoglobin 9.4 g/dL (12.0-16.0); Mean Corpuscular HGB CONC 34.1 g/dL (32.0-36.0); Mean Corpuscular Hemoglobin 29.4 pg (27.0-31.0); Mean Corpuscular Volume 86.3 fL (78.0-98.0); Mean Platelet Volume 9.4 fL (7.4-10.4); Platelet Count 137 10x3/uL (130-400)
[2024-09-18 10:01] LABS: Anion Gap 10 mmol/L (10-20); BUN (Urea Nitrogen) 9 mg/dL (7.0-18.7); BUN/Creatinine Ratio 13.64; Calc. Creatinine Clearance 83 mL/min (70-130); Calcium 12.7 mg/dL (7.8-10.44); Carbon Dioxide 24 mmol/L (22-29); Chloride 108 mmol/L (98-107); Estimated GFR 111; Glucose 87 mg/dL (70-105); Magnesium 1.4 mg/dL (1.6-2.6); Phosphorus 3.5 mg/dL (2.3-4.7); Potassium 3.8 mmol/L (3.5-5.1); Sodium 138 mmol/L (136-145)
[2024-09-18] MEDS: Potassium Chloride 20 MEQ in Premix 1 BAG IVPB SCH (10:03)
[2024-09-18] MEDS: Zoledronic Acid 4 MG in Sodium Chloride 0.9% 100 ML IVPB SCH (11:41)
[2024-09-18] MEDS: Magnesium Sulfate In Water 4 GM in Premix 1 BAG IVPB SCH (12:47)
[2024-09-18 16:01] LABS: Reference Lab Name LABCORP
[2024-09-19 06:34] LABS: #Basophils 0.04 10x3/uL (0.0-0.2); %Basophils 0.6 % (0.0-1.0); %Eosinophils 1.8 % (0.0-10.0); %Lymphocytes 7.4 % (21.0-51.0); %Monocytes 8.7 % (0.0-10.0); %Neutrophils 81.1 % (42.0-75.0); Hematocrit 26.8 % (36.0-47.0); Hemoglobin 9.1 g/dL (12.0-16.0); Mean Corpuscular Hemoglobin 30.1 pg (27.0-31.0); Mean Corpuscular Volume 88.7 fL (78.0-98.0); Mean Platelet Volume 9.9 fL (7.4-10.4); Platelet Count 130 10x3/uL (130-400); RBC Distribution Width 16.2 % (11.5-14.5); Red Blood Cell (RBC) Count 3.02 mill/uL (4.20-5.40)
[2024-09-19 07:01] LABS: Albumin 3.8 g/dL (3.5-5.0); Anion Gap 12 mmol/L (10-20); BUN (Urea Nitrogen) 10 mg/dL (7.0-18.7); BUN/Creatinine Ratio 13.89; Calc. Creatinine Clearance 76 mL/min (70-130); Calcium 11.1 mg/dL (7.8-10.44); Carbon Dioxide 21 mmol/L (22-29); Chloride 105 mmol/L (98-107); Estimated GFR 106; Glucose 97 mg/dL (70-105); Magnesium 2.1 mg/dL (1.6-2.6); Phosphorus 2.6 mg/dL (2.3-4.7); Potassium 4.1 mmol/L (3.5-5.1); Sodium 134 mmol/L (136-145)
[2024-09-19] MEDS: Ergocalciferol 1.25 MG(50,000 UNITS) CAP PO SCH (11:39)
[2024-09-19] MEDS: Methocarbamol 500 MG TAB PO PRN (11:39)
[2024-09-20 06:29] LABS: #Basophils 0.04 10x3/uL (0.0-0.2); %Basophils 0.9 % (0.0-1.0); %Eosinophils 4.8 % (0.0-10.0); %Lymphocytes 14.3 % (21.0-51.0); %Monocytes 12.7 % (0.0-10.0); %Neutrophils 67.1 % (42.0-75.0); Hematocrit 24.6 % (36.0-47.0); Hemoglobin 8.2 g/dL (12.0-16.0); Mean Corpuscular HGB CONC 33.3 g/dL (32.0-36.0); Mean Corpuscular Hemoglobin 29.8 pg (27.0-31.0); Mean Corpuscular Volume 89.5 fL (78.0-98.0); Mean Platelet Volume 9.8 fL (7.4-10.4); Platelet Count 123 10x3/uL (130-400); RBC Distribution Width 16.7 % (11.5-14.5); Red Blood Cell (RBC) Count 2.75 mill/uL (4.20-5.40)
[2024-09-20 06:38] LABS: ALT (SGPT) 11 U/L (8-55); AST (SGOT) 27 U/L (5-34); Albumin 3.4 g/dL (3.5-5.0); Alkaline Phosphatase 137 U/L (40-110); Anion Gap 11 mmol/L (10-20); BUN (Urea Nitrogen) 9 mg/dL (7.0-18.7); Bilirubin, Total 1.2 mg/dL (0.2-1.2); Calc. Creatinine Clearance 85 mL/min (70-130); Calcium 8.8 mg/dL (7.8-10.44); Carbon Dioxide 19 mmol/L (22-29); Chloride 107 mmol/L (98-107); Estimated GFR 112; Globulin 3.1 g/dL (2.4-3.5); Glucose 145 mg/dL (70-105); Magnesium 1.5 mg/dL (1.6-2.6); Potassium 3.5 mmol/L (3.5-5.1); Protein, Total 6.5 g/dL (6.0-8.3); Sodium 133 mmol/L (136-145)
[2024-09-20] MEDS: Magnesium Sulfate In Water 4 GM in Premix 1 BAG IVPB SCH (08:48)
[2024-09-20] MEDS: Potassium Bicarbonate/Cit Ac 20 MEQ TAB PO SCH (10:43)
[2024-09-20] MEDS: Potassium Chloride 20 MEQ TAB PO SCH (11:39)
[2024-09-20] MEDS ORDERED: Potassium Bicarbonate/Cit Ac 20 MEQ TAB PO SCH (12:00)
[2024-09-20] MEDS: Magnesium 2 GM/50 ML(in water) 2 GM in Premix 1 BAG IVPB SCH (23:18)
[2024-09-21 07:32] LABS: #Basophils 0.05 10x3/uL (0.0-0.2); %Eosinophils 4.4 % (0.0-10.0); %Monocytes 15.9 % (0.0-10.0); %Neutrophils 57.5 % (42.0-75.0); Hematocrit 26.1 % (36.0-47.0); Hemoglobin 8.8 g/dL (12.0-16.0); Mean Corpuscular HGB CONC 33.7 g/dL (32.0-36.0); Mean Corpuscular Hemoglobin 30.6 pg (27.0-31.0); Mean Corpuscular Volume 90.6 fL (78.0-98.0); Mean Platelet Volume 9.4 fL (7.4-10.4); Platelet Count 146 10x3/uL (130-400); RBC Distribution Width 16.8 % (11.5-14.5); Red Blood Cell (RBC) Count 2.88 mill/uL (4.20-5.40)
[2024-09-21 07:52] LABS: Albumin 3.5 g/dL (3.5-5.0); Anion Gap 12 mmol/L (10-20); BUN (Urea Nitrogen) 7 mg/dL (7.0-18.7); BUN/Creatinine Ratio 12.28; Calc. Creatinine Clearance 96 mL/min (70-130); Calcium 8.1 mg/dL (7.8-10.44); Carbon Dioxide 19 mmol/L (22-29); Chloride 107 mmol/L (98-107); Estimated GFR 115; Glucose 91 mg/dL (70-105); Phosphorus 2.2 mg/dL (2.3-4.7); Potassium 3.6 mmol/L (3.5-5.1); Sodium 134 mmol/L (136-145)
[2024-09-21] MEDS: Magnesium 2 GM/50 ML(in water) 2 GM in Premix 1 BAG IVPB SCH (08:54)
[2024-09-21] MEDS: Potassium Bicarbonate/Cit Ac 20 MEQ TAB PO SCH (09:01)
[2024-09-21] MEDS ORDERED: Ipratropium/Albuterol 3 ML NEB NEB PRN (09:27)
[2024-09-21] MEDS: Potassium Phosphate 30 MMOL in Sodium Chloride 0.9% 250 ML 250 ML IVPB SCH (11:05)
[2024-09-21 11:36] LABS: Kappa Lambda Light Chain Ratio 1.94 (0.26-1.65); Kappa Light Chains 113.1 mg/L (3.3-19.4); Lambda Light Chain 58.2 mg/L (5.7-26.3)
[2024-09-21 15:37] LABS: A/G Ratio 1.2 (0.7-1.7); Albumin 3.5 g/dL (2.9-4.4); Alpha 1 0.2 g/dL (0.0-0.4); Alpha 2 0.3 g/dL (0.4-1.0); Beta 0.9 g/dL (0.7-1.3); Gamma 1.5 g/dL (0.4-1.8); M-Spike Not Observed g/dL (Not Observed)
[2024-09-22 05:43] LABS: #Basophils 0.05 10x3/uL (0.0-0.2); %Eosinophils 5.4 % (0.0-10.0); %Lymphocytes 20.5 % (21.0-51.0); %Neutrophils 59.9 % (42.0-75.0); Hematocrit 28.4 % (36.0-47.0); Hemoglobin 9.5 g/dL (12.0-16.0); Mean Corpuscular HGB CONC 33.5 g/dL (32.0-36.0); Mean Corpuscular Hemoglobin 30.1 pg (27.0-31.0); Mean Corpuscular Volume 89.9 fL (78.0-98.0); Mean Platelet Volume 9.3 fL (7.4-10.4); Platelet Count 160 10x3/uL (130-400); RBC Distribution Width 16.9 % (11.5-14.5); Red Blood Cell (RBC) Count 3.16 mill/uL (4.20-5.40)
[2024-09-22 06:03] LABS: Vancomycin, Random 17.3 ug/mL (See Comment)
[2024-09-22 06:05] LABS: ALT (SGPT) 11 U/L (8-55); AST (SGOT) 30 U/L (5-34); Albumin 3.7 g/dL (3.5-5.0); Alkaline Phosphatase 176 U/L (40-110); Anion Gap 11 mmol/L (10-20); BUN (Urea Nitrogen) 8 mg/dL (7.0-18.7); Bilirubin, Total 1.1 mg/dL (0.2-1.2); Calc. Creatinine Clearance 88 mL/min (70-130); Calcium 8.1 mg/dL (7.8-10.44); Carbon Dioxide 17 mmol/L (22-29); Chloride 108 mmol/L (98-107); Estimated GFR 113; Globulin 3.8 g/dL (2.4-3.5); Glucose 110 mg/dL (70-105); Magnesium 1.8 mg/dL (1.6-2.6); Potassium 4.5 mmol/L (3.5-5.1); Protein, Total 7.5 g/dL (6.0-8.3); Sodium 131 mmol/L (136-145)
[2024-09-22] MEDS: Magnesium 2 GM/50 ML(in water) 2 GM in Premix 1 BAG IVPB SCH (08:26)
[2024-09-22] MEDS: Furosemide 40 MG (4 mL) VIAL SLOW IVP SCH (08:31)
[2024-09-22] MEDS: Sodium Bicarbonate Tab 325 MG TAB PO SCH (12:33)
[2024-09-23 06:35] LABS: #Basophils 0.12 10x3/uL (0.0-0.2); %Basophils 1.8 % (0.0-1.0); %Eosinophils 5.6 % (0.0-10.0); %Lymphocytes 18.7 % (21.0-51.0); %Monocytes 16.2 % (0.0-10.0); %Neutrophils 57.1 % (42.0-75.0); Hematocrit 28.2 % (36.0-47.0); Hemoglobin 9.6 g/dL (12.0-16.0); Mean Corpuscular Hemoglobin 30.6 pg (27.0-31.0); Mean Corpuscular Volume 89.8 fL (78.0-98.0); Mean Platelet Volume 9.1 fL (7.4-10.4); Platelet Count 191 10x3/uL (130-400); RBC Distribution Width 16.9 % (11.5-14.5); Red Blood Cell (RBC) Count 3.14 mill/uL (4.20-5.40)
[2024-09-23 07:04] LABS: ALT (SGPT) 12 U/L (8-55); AST (SGOT) 30 U/L (5-34); Albumin 3.6 g/dL (3.5-5.0); Alkaline Phosphatase 175 U/L (40-110); Anion Gap 12 mmol/L (10-20); BUN (Urea Nitrogen) 8 mg/dL (7.0-18.7); Bilirubin, Total 1.1 mg/dL (0.2-1.2); Calc. Creatinine Clearance 94 mL/min (70-130); Calcium 8.3 mg/dL (7.8-10.44); Carbon Dioxide 18 mmol/L (22-29); Chloride 105 mmol/L (98-107); Estimated GFR 114; Glucose 95 mg/dL (70-105); Magnesium 1.7 mg/dL (1.6-2.6); Potassium 4.9 mmol/L (3.5-5.1); Protein, Total 7.6 g/dL (6.0-8.3); Sodium 130 mmol/L (136-145)
[2024-09-23] MEDS ORDERED: Magnesium 2 GM/50 ML(in water) 2 GM in Premix 1 BAG IVPB SCH (08:00)
[2024-09-23 08:48] LABS: Phosphorus 2.5 mg/dL (2.3-4.7)
[2024-09-23] MEDS: Magnesium Sulfate In Water 4 GM in Premix 1 BAG IVPB SCH (08:49)
[2024-09-23] MEDS: Sodium Bicarbonate Tab 325 MG TAB PO SCH (15:00)
[2024-09-24 05:31] LABS: %Basophils 1.5 % (0.0-1.0); %Eosinophils 5.7 % (0.0-10.0); %Lymphocytes 18.5 % (21.0-51.0); %Monocytes 12.7 % (0.0-10.0); %Neutrophils 60.9 % (42.0-75.0); Hemoglobin 9.9 g/dL (12.0-16.0); Mean Corpuscular HGB CONC 34.1 g/dL (32.0-36.0); Mean Corpuscular Hemoglobin 30.7 pg (27.0-31.0); Mean Corpuscular Volume 90.1 fL (78.0-98.0); Mean Platelet Volume 9.1 fL (7.4-10.4); Platelet Count 187 10x3/uL (130-400); RBC Distribution Width 16.6 % (11.5-14.5); Red Blood Cell (RBC) Count 3.22 mill/uL (4.20-5.40)
[2024-09-24 06:11] LABS: ALT (SGPT) 13 U/L (8-55); AST (SGOT) 34 U/L (5-34); Albumin 3.5 g/dL (3.5-5.0); Alkaline Phosphatase 195 U/L (40-110); Anion Gap 13 mmol/L (10-20); BUN (Urea Nitrogen) 8 mg/dL (7.0-18.7); Bilirubin, Total 1.1 mg/dL (0.2-1.2); Calc. Creatinine Clearance 81 mL/min (70-130); Calcium 8.3 mg/dL (7.8-10.44); Carbon Dioxide 16 mmol/L (22-29); Chloride 101 mmol/L (98-107); Estimated GFR 110; Glucose 152 mg/dL (70-105); Magnesium 1.9 mg/dL (1.6-2.6); Potassium 4.5 mmol/L (3.5-5.1); Protein, Total 7.5 g/dL (6.0-8.3); Sodium 125 mmol/L (136-145)
[2024-09-24] MEDS: Sodium Chloride 1 GM TAB PO SCH (09:04)
[2024-09-25 05:35] LABS: #Basophils 0.09 10x3/uL (0.0-0.2); %Basophils 1.4 % (0.0-1.0); %Eosinophils 4.9 % (0.0-10.0); %Lymphocytes 16.8 % (21.0-51.0); %Monocytes 17.4 % (0.0-10.0); %Neutrophils 58.9 % (42.0-75.0); Hematocrit 27.6 % (36.0-47.0); Hemoglobin 9.5 g/dL (12.0-16.0); Mean Corpuscular HGB CONC 34.4 g/dL (32.0-36.0); Mean Corpuscular Hemoglobin 30.2 pg (27.0-31.0); Mean Corpuscular Volume 87.6 fL (78.0-98.0); Mean Platelet Volume 9.2 fL (7.4-10.4); Platelet Count 188 10x3/uL (130-400); RBC Distribution Width 16.7 % (11.5-14.5); Red Blood Cell (RBC) Count 3.15 mill/uL (4.20-5.40)
[2024-09-25 05:58] LABS: Anion Gap 9 mmol/L (10-20); BUN (Urea Nitrogen) 10 mg/dL (7.0-18.7); Calc. Creatinine Clearance 92 mL/min (70-130); Carbon Dioxide 19 mmol/L (22-29); Chloride 108 mmol/L (98-107); Estimated GFR 114; Glucose 107 mg/dL (70-105); Magnesium 1.7 mg/dL (1.6-2.6); Potassium 4.3 mmol/L (3.5-5.1); Sodium 132 mmol/L (136-145)
[2024-09-25] MEDS: Magnesium Sulfate In Water 4 GM in Premix 1 BAG IVPB SCH (08:59)
[2024-09-25] MEDS: Spironolactone 25 MG TAB PO SCH (08:59)
[2024-09-25] MEDS: Ergocalciferol 1.25 MG(50,000 UNITS) CAP PO SCH (08:59)
[2024-09-26 06:10] LABS: Anion Gap 11 mmol/L (10-20); BUN (Urea Nitrogen) 10 mg/dL (7.0-18.7); Calc. Creatinine Clearance 84 mL/min (70-130); Calcium 8.7 mg/dL (7.8-10.44); Carbon Dioxide 18 mmol/L (22-29); Chloride 110 mmol/L (98-107); Estimated GFR 111; Glucose 100 mg/dL (70-105); Magnesium 1.8 mg/dL (1.6-2.6); Potassium 4.7 mmol/L (3.5-5.1); Sodium 134 mmol/L (136-145)
[2024-09-26] MEDS: Spironolactone 25 MG TAB PO SCH (08:44)
[2024-09-26] MEDS: Vancomycin HCl 500 MG in Sodium Chloride 0.9% 100 ML IVPB SCH (15:43)
[2024-09-27 06:15] LABS: Anion Gap 9 mmol/L (10-20); BUN (Urea Nitrogen) 8 mg/dL (7.0-18.7); Calc. Creatinine Clearance 101 mL/min (70-130); Carbon Dioxide 20 mmol/L (22-29); Chloride 109 mmol/L (98-107); Estimated GFR 116; Glucose 108 mg/dL (70-105); Magnesium 1.5 mg/dL (1.6-2.6); Potassium 4.2 mmol/L (3.5-5.1); Sodium 134 mmol/L (136-145)
[2024-09-27] MEDS: Magnesium Sulfate In Water 4 GM in Premix 1 BAG IVPB SCH (08:23)
[2024-09-27 11:13] LABS: Fungus Culture Final report (.); Fungus Culture Result 1 Chaetomium species (.)
[2024-09-27] MEDS: Vancomycin HCl 750 MG in Sodium Chloride 0.9% 250 ML 250 ML IVPB SCH (20:17)
[2024-09-28 07:32] LABS: Vancomycin, Random 17.9 ug/mL (See Comment)
[2024-09-28 08:23] LABS: Albumin 3.5 g/dL (3.5-5.0); Anion Gap 11 mmol/L (10-20); BUN (Urea Nitrogen) 10 mg/dL (7.0-18.7); BUN/Creatinine Ratio 17.54; Calc. Creatinine Clearance 96 mL/min (70-130); Calcium 8.5 mg/dL (7.8-10.44); Carbon Dioxide 19 mmol/L (22-29); Chloride 107 mmol/L (98-107); Estimated GFR 115; Glucose 109 mg/dL (70-105); Magnesium 1.8 mg/dL (1.6-2.6); Phosphorus 4.1 mg/dL (2.3-4.7); Potassium 4.4 mmol/L (3.5-5.1); Sodium 133 mmol/L (136-145)
[2024-09-28] MEDS: Magnesium Sulfate In Water 4 GM in Premix 1 BAG IVPB SCH (14:01)
[2024-09-28] MEDS: Lactulose 20 GM (30 mL) UDCUP PO SCH (17:30)
[2024-09-29 08:48] LABS: Albumin 3.4 g/dL (3.5-5.0); Anion Gap 12 mmol/L (10-20); BUN (Urea Nitrogen) 10 mg/dL (7.0-18.7); BUN/Creatinine Ratio 17.54; Calc. Creatinine Clearance 96 mL/min (70-130); Calcium 8.6 mg/dL (7.8-10.44); Carbon Dioxide 19 mmol/L (22-29); Chloride 107 mmol/L (98-107); Estimated GFR 115; Glucose 75 mg/dL (70-105); Phosphorus 4.4 mg/dL (2.3-4.7); Potassium 4.4 mmol/L (3.5-5.1); Sodium 134 mmol/L (136-145)
[2024-09-29 16:45] LABS: Urine Total Volume 2650 mL (600-1600)
[2024-09-29 17:26] LABS: Creatinine, Urine 34.83 mg/dL (47-110)
[2024-09-29] MEDS: Rifaximin 550 MG TAB PO SCH (21:33)
[2024-10-02 04:36] LABS: Magnesium, Urine 20.8 mg/dL (Not Estab.); Magnesium-24H 551.2 mg/24 hr (12.0-293.0)
[2024-10-02 07:05] LABS: %Basophils 1.6 % (0.0-1.0); %Eosinophils 4.7 % (0.0-10.0); %Lymphocytes 17.7 % (21.0-51.0); %Monocytes 13.4 % (0.0-10.0); %Neutrophils 62.1 % (42.0-75.0); Mean Corpuscular HGB CONC 34.5 g/dL (32.0-36.0); Mean Corpuscular Hemoglobin 30.6 pg (27.0-31.0); Mean Corpuscular Volume 88.7 fL (78.0-98.0); Mean Platelet Volume 9.3 fL (7.4-10.4); Platelet Count 165 10x3/uL (130-400); RBC Distribution Width 15.3 % (11.5-14.5); Red Blood Cell (RBC) Count 3.27 mill/uL (4.20-5.40)
[2024-10-02 07:23] LABS: Anion Gap 10 mmol/L (10-20); BUN (Urea Nitrogen) 8 mg/dL (7.0-18.7); Calc. Creatinine Clearance 105 mL/min (70-130); Calcium 8.7 mg/dL (7.8-10.44); Carbon Dioxide 20 mmol/L (22-29); Chloride 108 mmol/L (98-107); Estimated GFR 117; Glucose 86 mg/dL (70-105); Magnesium 1.5 mg/dL (1.6-2.6); Sodium 134 mmol/L (136-145)
[2024-10-02] MEDS: Magnesium Sulfate In Water 4 GM in Premix 1 BAG IVPB SCH (10:53)
[2024-10-03 06:32] LABS: Albumin 3.4 g/dL (3.5-5.0); Anion Gap 13 mmol/L (10-20); BUN (Urea Nitrogen) 8 mg/dL (7.0-18.7); BUN/Creatinine Ratio 15.69; Calc. Creatinine Clearance 107 mL/min (70-130); Calcium 8.6 mg/dL (7.8-10.44); Carbon Dioxide 18 mmol/L (22-29); Chloride 107 mmol/L (98-107); Estimated GFR 118; Glucose 109 mg/dL (70-105); Magnesium 1.7 mg/dL (1.6-2.6); Phosphorus 4.6 mg/dL (2.3-4.7); Potassium 5.3 mmol/L (3.5-5.1); Sodium 133 mmol/L (136-145)
[2024-10-03] MEDS: Magnesium Sulfate In Water 4 GM in Premix 1 BAG IVPB SCH (06:46)
[2024-10-03 07:10] LABS: Vancomycin, Random 18.8 ug/mL (See Comment)
[2024-10-03 13:13] LABS: Albumin, PEP 24hr Ur 29.5 % (NOT ESTAB.); Alpha-1-Globulin, PEP 24h Ur 13.4 % (NOT ESTAB.); Alpha-2-Globulin, PEP 24h Ur 12.6 % (NOT ESTAB.); Gamma Globulin, PEP 24h Ur 21.4 % (NOT ESTAB.); M-Spike,% PEP 24hr Ur Not Observed % (Not Observed); Protein, PEP 24hr calculated 127 mg/24 hr (30-150); Protein, Urine 4.8 mg/dL (Not Estab.)
[2024-10-03] MEDS: Lactulose 20 GM (30 mL) UDCUP PO SCH (20:53)
[2024-10-04 05:34] LABS: Anion Gap 12 mmol/L (10-20); BUN (Urea Nitrogen) 8 mg/dL (7.0-18.7); Calc. Creatinine Clearance 101 mL/min (70-130); Calcium 9.3 mg/dL (7.8-10.44); Carbon Dioxide 21 mmol/L (22-29); Chloride 105 mmol/L (98-107); Estimated GFR 116; Glucose 107 mg/dL (70-105); Magnesium 1.6 mg/dL (1.6-2.6); Sodium 134 mmol/L (136-145)
[2024-10-04] MEDS: Magnesium Sulfate In Water 4 GM in Premix 1 BAG IVPB SCH (08:18)
[2024-10-04] MEDS: Enoxaparin 40 MG (0.4 mL) SYRINGE SC SCH (08:26)
[2024-10-05 07:22] LABS: #Basophils 0.08 10x3/uL (0.0-0.2); %Basophils 1.3 % (0.0-1.0); %Eosinophils 4.9 % (0.0-10.0); %Lymphocytes 17.9 % (21.0-51.0); %Monocytes 10.4 % (0.0-10.0); %Neutrophils 65.3 % (42.0-75.0); Hematocrit 33.1 % (36.0-47.0); Mean Corpuscular HGB CONC 33.2 g/dL (32.0-36.0); Mean Corpuscular Hemoglobin 30.3 pg (27.0-31.0); Mean Corpuscular Volume 91.2 fL (78.0-98.0); Mean Platelet Volume 9.3 fL (7.4-10.4); Platelet Count 177 10x3/uL (130-400); RBC Distribution Width 15.1 % (11.5-14.5); Red Blood Cell (RBC) Count 3.63 mill/uL (4.20-5.40)
[2024-10-05 07:39] LABS: Calc. Creatinine Clearance 105 mL/min (70-130); Estimated GFR 117
[2024-10-05 07:40] LABS: Albumin 3.5 g/dL (3.5-5.0); Anion Gap 12 mmol/L (10-20); BUN (Urea Nitrogen) 11 mg/dL (7.0-18.7); BUN/Creatinine Ratio 21.15; Calcium 9.6 mg/dL (7.8-10.44); Carbon Dioxide 18 mmol/L (22-29); Chloride 106 mmol/L (98-107); Glucose 143 mg/dL (70-105); Magnesium 1.7 mg/dL (1.6-2.6); Phosphorus 4.4 mg/dL (2.3-4.7); Potassium 4.7 mmol/L (3.5-5.1); Sodium 131 mmol/L (136-145)
[2024-10-05] MEDS: Magnesium Sulfate In Water 4 GM in Premix 1 BAG IVPB SCH (11:31)
[2024-10-05] MEDS: Ciprofloxacin 0.3% Ophth Soln 2.5 ml Bottle EA EYE SCH (15:17)
[2024-10-05] MEDS: Magnesium Oxide 400 MG TAB PO SCH (21:42)
[2024-10-06 05:02] LABS: Albumin 3.3 g/dL (3.5-5.0); Anion Gap 9 mmol/L (10-20); BUN (Urea Nitrogen) 11 mg/dL (7.0-18.7); BUN/Creatinine Ratio 22.92; Calc. Creatinine Clearance 123 mL/min (70-130); Calcium 9.4 mg/dL (7.8-10.44); Carbon Dioxide 19 mmol/L (22-29); Chloride 107 mmol/L (98-107); Estimated GFR 120; Glucose 151 mg/dL (70-105); Magnesium 1.8 mg/dL (1.6-2.6); Phosphorus 4.2 mg/dL (2.3-4.7); Potassium 4.3 mmol/L (3.5-5.1); Sodium 131 mmol/L (136-145)
[2024-10-06] MEDS: traMADol HCl 50 MG TAB PO PRN (16:09)
[2024-10-07 05:27] LABS: Albumin 3.2 g/dL (3.5-5.0); Anion Gap 10 mmol/L (10-20); BUN (Urea Nitrogen) 12 mg/dL (7.0-18.7); BUN/Creatinine Ratio 23.53; Calc. Creatinine Clearance 116 mL/min (70-130); Calcium 9.2 mg/dL (7.8-10.44); Carbon Dioxide 19 mmol/L (22-29); Chloride 106 mmol/L (98-107); Estimated GFR 118; Glucose 98 mg/dL (70-105); Magnesium 1.6 mg/dL (1.6-2.6); Phosphorus 4.3 mg/dL (2.3-4.7); Potassium 4.5 mmol/L (3.5-5.1); Sodium 130 mmol/L (136-145)
[2024-10-08 04:56] LABS: Anion Gap 11 mmol/L (10-20); BUN (Urea Nitrogen) 12 mg/dL (7.0-18.7); Calc. Creatinine Clearance 126 mL/min (70-130); Carbon Dioxide 18 mmol/L (22-29); Chloride 110 mmol/L (98-107); Estimated GFR 120; Glucose 86 mg/dL (70-105); Magnesium 1.7 mg/dL (1.6-2.6); Potassium 4.9 mmol/L (3.5-5.1); Sodium 134 mmol/L (136-145)
[2024-10-08] MEDS: Metoprolol Succinate XL 25 MG ER.TAB PO SCH (09:21)
[2024-10-08] MEDS: Vancomycin HCl 750 MG in Sodium Chloride 0.9% 250 ML 250 ML IVPB SCH (09:22)
[2024-10-09 07:43] LABS: #Basophils 0.08 10x3/uL (0.0-0.2); %Basophils 1.5 % (0.0-1.0); %Lymphocytes 18.5 % (21.0-51.0); %Monocytes 12.1 % (0.0-10.0); %Neutrophils 61.7 % (42.0-75.0); Hematocrit 29.4 % (36.0-47.0); Hemoglobin 9.7 g/dL (12.0-16.0); Mean Corpuscular Hemoglobin 30.3 pg (27.0-31.0); Mean Corpuscular Volume 91.9 fL (78.0-98.0); Mean Platelet Volume 9.8 fL (7.4-10.4); Platelet Count 164 10x3/uL (130-400); RBC Distribution Width 14.4 % (11.5-14.5)
[2024-10-09 07:55] LABS: Anion Gap 12 mmol/L (10-20); BUN (Urea Nitrogen) 12 mg/dL (7.0-18.7); Calc. Creatinine Clearance 121 mL/min (70-130); Calcium 8.9 mg/dL (7.8-10.44); Carbon Dioxide 18 mmol/L (22-29); Chloride 108 mmol/L (98-107); Estimated GFR 119; Glucose 82 mg/dL (70-105); Magnesium 1.7 mg/dL (1.6-2.6); Potassium 4.6 mmol/L (3.5-5.1); Sodium 133 mmol/L (136-145)
[2024-10-10 06:17] LABS: Vancomycin, Random 20.3 ug/mL (See Comment)
[2024-10-10] MEDS: Rifaximin 550 MG TAB PO SCH ×2 (11:45→19:46)
[2024-10-10] MEDS: Lorazepam 0.5 MG TAB PO SCH (22:15)
[2024-10-11 00:10] VITALS: BP 109/70; TEMP 98.2
== END 2024-10-10 22:50 | DRG 560 ==
LOC: ERS 08:52 → T4-B 12:31
PROVIDERS: ADMIT Internal Medicine; ATTEND Internal Medicine
PROC: 30233J1 Transfusion of Nonautologous Serum Albumin into Peripheral Vein, Percutaneous Approach (ICD-10-PCS; principal; 2024-09-17)
DX: T84.52XA Infection and inflammatory reaction due to internal left hip prosthesis, initial encounter (principal); E87.1 Hypo-osmolality and hyponatremia; E87.20 Acidosis, unspecified; K76.6 Portal hypertension; N15.8 Other specified renal tubulo-interstitial diseases; E87.6 Hypokalemia; K70.31 Alcoholic cirrhosis of liver with ascites; E55.9 Vitamin D deficiency, unspecified; Z79.899 Other long term (current) drug therapy; Z98.890 Other specified postprocedural states; I10 Essential (primary) hypertension; F41.9 Anxiety disorder, unspecified; E86.0 Dehydration; F10.20 Alcohol dependence, uncomplicated; E87.70 Fluid overload, unspecified
CPT/HCPCS: 36415; 71045; 72192; 72193; 77012; 80048; 80053; 80069; 80202; 81001; 82040; 82140; 82164; 82306; 82340; 82565; 82570; 82652; 83605; 83735; 83883; 83930; 83935; 83970; 84100; 84155; 84156; 84165; 84166; 84443; 84590; 85025; 85610; 85730; 86141; 87040; 87070; 87077; 87086; 87102; 87116; 87186; 87205; 87206; 93005; 93010; 96374; J0692; J1650; J1940; J3010; J3370; J3475; J3480; J3489; J7030; J7050; P9047; Q9967

== ENCOUNTER 2024-11-17 19:38 | Emergency (ER) | payer OTHER ==
[2024-11-17] MEDS ORDERED: Ondansetron PF 4 MG/2 ML Vial ONE (21:03)
[2024-11-17] MEDS ORDERED: Morphine 4 MG/ML VIAL ONE (21:03)
[2024-11-17 21:58] LABS: #Basophils 0.08 10x3/uL (0.0-0.2); %Basophils 1.5 % (0.0-1.0); %Eosinophils 2.7 % (0.0-10.0); %Lymphocytes 26.9 % (21.0-51.0); %Monocytes 13.3 % (0.0-10.0); %Neutrophils 55.4 % (42.0-75.0); Hematocrit 33.4 % (36.0-47.0); Hemoglobin 11.8 g/dL (12.0-16.0); Mean Corpuscular HGB CONC 35.3 g/dL (32.0-36.0); Mean Corpuscular Hemoglobin 29.9 pg (27.0-31.0); Mean Corpuscular Volume 84.6 fL (78.0-98.0); Mean Platelet Volume 9.6 fL (7.4-10.4); Platelet Count 148 10x3/uL (130-400); RBC Distribution Width 13.3 % (11.5-14.5); Red Blood Cell (RBC) Count 3.95 mill/uL (4.20-5.40)
[2024-11-17 22:17] LABS: BHCG - Serum Negative (NEGATIVE); Pregs Control Background? CLEAR/WHITE (CLR/WHITE); Pregs Control Bar Appear? YES (CONTROL BAR)
[2024-11-17 22:25] LABS: CRP,High Sensitivity (Inhouse) 0.31 mg/dL (< or = 0.5)
[2024-11-17 22:26] LABS: ALT (SGPT) 14 U/L (Less than 34); AST (SGOT) 43 U/L (11-34); Albumin 3.2 g/dL (3.1-4.5); Alkaline Phosphatase 146 U/L (40-110); Anion Gap 11 mmol/L (10-20); BUN (Urea Nitrogen) 13 mg/dL (7.0-18.7); Bilirubin, Total 0.6 mg/dL (0.3-1.2); Calc. Creatinine Clearance 0 mL/min (70-130); Calcium 9.3 mg/dL (7.8-10.44); Carbon Dioxide 22 mmol/L (22-29); Chloride 99 mmol/L (98-107); Estimated GFR 110; Glucose 100 mg/dL (70-105); Potassium 4.4 mmol/L (3.5-5.1); Protein, Total 7.2 g/dL (6.0-8.3); Sodium 128 mmol/L (136-145)
[2024-11-18] MEDS ORDERED: Morphine 4 MG/ML VIAL ONE (01:15)
== END 2024-11-18 01:15 | disposition home or self-care (01) ==
LOC: ERS 19:38
DX: M25.552 Pain in left hip (principal); I10 Essential (primary) hypertension
CPT/HCPCS: 72193; 80053; 84703; 85025; 86141; J2270; J2405